=== PATIENT | female | born 1980 | race Two or more races ===

== ENCOUNTER 2021-10-15 10:11 | Outpatient (REF) | payer OTHER, SELFPAY ==
--- NOTE | ~2021-10-15 | US_ITS ---
EXAMINATION: US ABDOMEN COMPLETE CLINICAL INFORMATION: Left upper quadrant pain. COMPARISON: X-ray abdomen 05/18/2019. US retroperitoneal limited (renal only) 05/25/2018. Ultrasound abdomen complete 04/27/2015. TECHNIQUE: Real-time imaging of the abdominal viscera. FINDINGS: PANCREAS: The pancreas is homogeneous in echotexture and normal size. The pancreatic duct is minimally prominent measuring 0.23 cm. ABDOMINAL AORTA: The proximal, mid, and distal segments are normal in caliber. INFERIOR VENA CAVA: Visualized portions are normal. LIVER: Normal. The liver is normal in size. The liver contour is normal. Parenchymal echogenicity is normal. No focal hepatic lesion. There is no intrahepatic biliary duct dilatation seen. GALLBLADDER: There are multiple echogenic stones with borderline gallbladder wall thickening measuring 0.37 cm. Positive ROSSY sign is seen The gallbladder is physiologically distended. Multiple mobile gallstones are present. No evidence of gallbladder wall thickening or pericholecystic fluid. COMMON BILE DUCT: Normal in caliber measuring 0.7 cm in diameter. RIGHT KIDNEY: Normal. No hydronephrosis. No renal calculi or focal parenchymal lesions. The kidney measures 12.1 cm in maximum dimension. LEFT KIDNEY: There are 3 anechoic cysts. Lower pole cysts measure 1.1 x 0.6 x 1.2 and 0.8 x 0.4 x 0.4 cm. Upper pole cyst measures 0.5 x 0.4 x 0.3 cm. No hydronephrosis or focal parenchymal lesions. The kidney measures 11.0 cm in maximum dimension. SPLEEN: Normal. The spleen measures 10.1 cm in maximum dimension. FREE FLUID: None. US/US abdomen complete IMPRESSION: Cholelithiasis with wall thickness measuring 0.37 cm. At least 3 left renal cysts. No echogenic stones or hydronephrosis.
== END 2021-10-15 10:12 | disposition home or self-care (01) ==
LOC: HO.HMGCX 10:11
PROVIDERS: Visit Provider Nurse Practitioner Family
DX: R10.12 Left upper quadrant pain (principal)
CPT/HCPCS: 76700

== ENCOUNTER 2021-10-16 14:26 | Emergency (ER) | payer OTHER, SELFPAY ==
--- NOTE | ~2021-10-16 | CT_ITS ---
EXAMINATION: CT ABDOMEN AND PELVIS WITHOUT CONTRAST CLINICAL INFORMATION: Left lower quadrant and left flank pain with dark urine COMPARISON: Ultrasound abdomen yesterday TECHNIQUE: Multidetector volumetric imaging was performed from the superior aspect of the liver through the pubic symphysis. Sagittal and coronal reformatted images were obtained on the technologist's workstation. This CT examination was performed using dose optimization techniques as appropriate, variously including the following: *Automated exposure control *Adjustment of mA and/or kV according to patient size (this includes techniques or standardized protocols for targeted exams where dose is matched to indication/reason for exam; i.e. extremities or head) *Use of iterative reconstruction technique DLP: 862 mGy-cm FINDINGS: LUNG BASES: The visualized lung bases are unremarkable. Right middle lobe and lingular medial atelectasis is present. LIVER, GALLBLADDER, AND BILIARY TREE: The liver is normal in size, shape, and attenuation. No focal hepatic lesion or biliary ductal dilatation is present. There is a nondependent calcification seen near the gallbladder fundus consistent with cholelithiasis. More extensive disease could be seen on yesterday's ultrasound. The gallbladder is unremarkable with no evidence of radiopaque gallstones, gallbladder wall thickening, or obvious pericholecystic inflammatory changes. PANCREAS: Unremarkable. SPLEEN: Unremarkable. ADRENAL GLANDS: Unremarkable. KIDNEYS AND URETERS: LEFT: 3 stones are present in the left kidney. 2 5 mm-sized stones are noted in the upper pole with a larger 13 x 7 x 10 mm stone noted in the lower pole. The lower pole stone measures 1283 Hounsfield units and is 13.7 cm from the posterior axillary line. A few other punctate densities are seen. There is right upper pole cortical scarring present. No definite left-sided renal masses are seen on this noncontrast study. RIGHT: There is a 4 mm x 4 mm calculus on the right at the ureteropelvic junction producing some minimal caliectasis. No other calculi are seen. No renal masses are identified. BLADDER: Unremarkable. GASTROINTESTINAL TRACT: The small and large bowel are unremarkable. The appendix is unremarkable. ABDOMINAL WALL: No significant hernia is appreciated. LYMPH NODES: Normal. VASCULAR: Unremarkable. PELVIC VISCERA: Unremarkable. OSSEOUS STRUCTURES: Unremarkable. CT/CT abdomen pelvis wo con IMPRESSION: 1. Bilateral nephrolithiasis. Stone burden is higher on the left with the largest 1.3 cm stone noted at the lower pole. There is a 4 mm stone on the right at the ureteropelvic junction causing some minimal hydronephrosis. 2. Again noted is cholelithiasis. Fleischner guidelines were followed.
[2021-10-16 15:49] VITALS: BP 145/93; PULSE 100; RESP 14; TEMP 36.4; O2SAT 100; BMI 34.8
[2021-10-16 16:25] LABS: Appearance Urine CLOUDY; Color Urine DK YELLOW; Glucose Urine UA NEG (NEG); Leukocyte Esterase Urine NEG (NEG); MANUAL DIFF FLAG NO; Nitrite Urine NEG (NEG); Specific Gravity - Urine >= 1.030 (1.005-1.025); UACC Culture Trigger NO; Urine Blood 3+ (NEG); Urine Ketones 5 MG/DL (NEG); Urine Protein 1+ MG/DL (NEG-TRACE)
[2021-10-16 16:26] LABS: Basophils Absolute Auto 0.1 X10*3/uL (0.0-0.2); Basophils Percent Auto 0.6 % (0-2); Eosinophils Absolute Auto 0.2 X10*3/uL (0.0-0.4); Eosinophils Percent Auto 2.6 % (0-4); Hematocrit 42.9 % (37.0-47.0); Hemoglobin 14.2 g/dl (12.0-16.0); Imm Gran Abs Auto 0.02 X10*3/uL (0.00-0.03); Imm Gran Pct Auto 0.3 % (0.0-0.4); Lymphocytes Absolute Auto 2.5 X10*3/uL (1.2-4.9); Lymphocytes Percent Auto 32.3 % (20-40); Mean Corpuscular HGB Conc 33.1 g/dl (31.0-35.0); Mean Corpuscular Hemoglobin 30.2 pg (27.0-33.0); Mean Corpuscular Volume 91.3 fL (80.0-98.0); Mean Platelet Volume 9.1 fL (9.4-12.3); Monocytes Absolute Auto 0.5 X10*3/uL (0.1-1.2); Monocytes Percent Auto 6.9 % (2-11); Neutrophils Absolute Auto 4.5 x10*3/uL (2.0-8.3); Neutrophils Percent Auto 57.3 % (45-73); Platelet Count 249 X10*3/uL (160-400); Red Cell Distribution Width 14.4 % (11.0-16.0); White Blood Count 7.8 X10*3/uL (4.8-10.8)
[2021-10-16 16:42] LABS: Anion Gap 14 (12-20); Blood Urea Nitrogen 12 mg/dL (9-16); Calcium 9.1 mg/dL (8.4-10.2); Carbon Dioxide 27 mmol/L (22-29); Chloride 102 mmol/L (96-108); Creatinine Clr Calc Pharmacy 116.3; Estimated Glomerular Filt Rate > 60; Glucose Random 96 mg/dL (60-115); Sodium 139 mmol/L (135-145)
[2021-10-16 16:49] LABS: Calcium Oxalate Crystals Urine TRACE /LPF; Mucus Urine TRACE /LPF; RBC Urine 50-75 /HPF (0); Red Blood Cell Casts Urine 0-2 /LPF; Renal Epithelial Cells Urine TRACE /LPF; Squamous Epithelial Cell Urine TRACE /LPF; WBC Urine 0-2 /HPF (0-4)
--- NOTE | 2021-10-16 17:04 | ED_ITS ---
HPI - Female Genitourinary General Chief complaint: Urogenital-Female Stated complaint: Brown urine Time Seen by Provider: 10/16/21 17:04 Source: patient Mode of arrival: ambulatory Limitations: no limitations History of Present Illness HPI Narrative: 41-year-old female history significant for constipation presenting to the emergency department left lower quadrant and left-sided flank pain x2 days worsening patient also has complaints of dark urine also x2 days. Patient tells me that this all started after she had a large bowel movement she tells me she has a history of constipation she was very constipated and after she had a large bowel movement she started noticing dark urine, and has had intermittent severe left-sided flank pain and left-sided lower quadrant pain. Patient tells me that she has had kidney stones in the past however this does not feel like her typical kidney stone. Patient tells me her urine is very dark however she is unsure if there is blood in her urine. Denies any trauma to the area. Denies fevers, chills, chest pain, shortness of breath, nausea, vomiting, vaginal bleeding, weakness headache or dizziness. MD elicited complaint: other (L. Flank pain ) Related Data Home Medications Medication Instructions Recorded Confirmed bhmddij-yncosorhbdbjv-shbwgslj 250 1 tab PO Q4-6H PRN 09/06/21 09/06/21 mg-250 mg-65 mg tablet (Excedrin Migraine) polyethylene glycol 3350 17 17 g PO DAILY 09/06/21 09/06/21 gram/dose oral powder (Miralax) Previous Rx's Medication Instructions Recorded docusate sodium 100 mg capsule 100 mg PO BID #60 caps 09/06/21 (Colace) morphine 15 mg immediate release 15 mg PO BID PRN pain #8 tabs 10/16/21 tablet prednisone 20 mg tablet 20 mg PO DAILY 5 days #5 tabs 10/16/21 tamsulosin 0.4 mg capsule (Flomax) 0.4 mg PO DAILY #30 caps 10/16/21 Allergies Allergy/AdvReac Type Severity Reaction Status Date / Time No Known Allergies Allergy Verified 09/06/21 15:54 Review of Systems Review of Systems: Constitutional : No Weight loss, No Fever, No Chills, No Fatigue, No Malaise ENT/Mouth : No sore throat, No Rhinorrhea Eyes: No Eye Pain, No Swelling, No Redness Cardiovascular : No Chest Pain, No SOB, No Dyspnea on Exertion, No Orthopnea, No Edema, No Palpitations Respiratory : No Cough, No Sputum, No Wheezing Gastrointestinal : No Nausea, No Vomiting, No Diarrhea, No Constipation, + abdominal Pain, No Hematochezia, No Melena, + flank pain Genitourinary : No Dysuria, No Urinary Frequency, No Hematuria, + dark urine Musculoskeletal : No joint pain, No Myalgias, No Joint Swelling Skin : No Skin Lesions, No rash Neuro : No Weakness, No Numbness, No Dizziness, No Headache Psych : No Anxiety/Panic, No Depression All other systems reviewed and are negative Yes all other systems are reviewed and are negative [facility] Past Medical History Attestation statement: The following information was validated with the patient. Source: old records reviewed and nursing notes reviewed Medical History Gallstone Surgical History History of removal of calculus of renal pelvis through percutaneous nephrostomy Family History Family History Mother Mental health disorder Depressed Social History Social History Housing: Apartment Alcohol intake: never Patient Tobacco Use Status: Current everyday Tobacco user Tobacco use type: Cigarette Cigarettes Per Day: 6 e-Cigarette/Vaping Use: Never Used Second Hand Smoke Exposure: Yes Advance Directives: No Advance Directives Information Provided: Yes service: No Current occupational status: unemployed Cognitive needs: No Hearing needs: No Vision needs: No Physical Exam Vital Signs: Vital Signs: Last Vital Signs Temp 98.6 F 10/16/21 17:13 Pulse 76 10/16/21 17:13 Resp 14 10/16/21 19:50 BP 137/83 10/16/21 17:13 Pulse Ox 96 10/16/21 17:13 O2 Del Method 10/16/21 17:13 BMI result Body Mass Index 34.8 vss Appearance: Alert.? Oriented X3.? No acute distress.? Head: Normocephalic, atraumatic, no step-offs or deformities Eyes: Pupils equal, round and reactive to light.? ENT: Pharynx normal.? Neck: Normal inspection.? Neck supple.? CVS: Normal heart rate and rhythm.? Pulses normal.? Respiratory: No respiratory distress.? Breath sounds normal.? Abdomen: Soft and + LLQ tenderness .? Skin: Skin warm and dry.? Normal skin color.? Normal skin turgor.? Extremities: No lower extremity edema.? No calf ttp. 5/5 strength to bilateral upper and lower extremities Back: No midline tenderness, no C-spine tenderness, full range of motion, no CVA tenderness bilaterally Neuro: Oriented X 3.? No motor deficit.? No sensory deficit. CN 2-12 intact Course Reevaluation(s) Reevaluation #1: CBC within normal limits. Chemistry with no acute electrolyte abnormalities requiring intervention. Urine with blood, proteins, and RBCs. CT of the abdo men and pelvis with bilateral nephrolithiasis stone burden higher on the left to the largest 1.3 cm stone at the lower pole, there is a with 4 mm stone on the right at that you VJ causing some minimal hydronephrosis. Cholelithiasis is also noted. Patient will be given Flomax, prednisone, morphine and fluids at this time. Time: 19:16 Reevaluation #2: Patient reporting symptomatic relief after medication, she will be discharged home with same medication, advised her to drink plenty of fluids and to follow- up with urology. Educated on worrisome signs and symptoms and when to return Time: 20:29 MDM - Female Genitourinary MDM Narrative Medical decision making narrative: 1710 41 yo f present w/ LLQ and L flank pain X 2 days also reports dark urine. HX of stones however, this feels different Physical examination significant for left lower quadrant pain with palpation Will rule out cystitis, UTI, obstructing uropathy. Plan- labs, urine, cta abd and pelvis Medical Records Attestation: I reviewed the patient's medical records. Lab Data Attestation: I reviewed the patient's lab results. Result diagrams: 10/16/21 16:06 10/16/21 16:06 Labs: Lab Results 10/16/21 10/16/21 10/16/21 Range/Units 16:06 16:06 16:06 WBC 7.8 (4.8-10.8) X10*3/uL RBC 4.70 (4.20-5.50) X10*6/uL Hgb 14.2 (12.0-16.0) g/dl Hct 42.9 (37.0-47.0) % MCV 91.3 (80.0-98.0) fL MCH 30.2 (27.0-33.0) pg MCHC 33.1 (31.0-35.0) g/dl RDW 14.4 (11.0-16.0) % Plt Count 249 (160-400) X10*3/uL MPV 9.1 L (9.4-12.3) fL Immature Gran % (Auto) 0.3 (0.0-0.4) % Neut % (Auto) 57.3 (45-73) % Lymph % (Auto) 32.3 (20-40) % Pickett % (Auto) 6.9 (2-11) % Eos % (Auto) 2.6 (0-4) % Baso % (Auto) 0.6 (0-2) % Lymph # (Auto) 2.5 (1.2-4.9) X10*3/uL Pickett # (Auto) 0.5 (0.1-1.2) X10*3/uL Eos # (Auto) 0.2 (0.0-0.4) X10*3/uL Baso # (Auto) 0.1 (0.0-0.2) X10*3/uL Abs Immat Gran (auto) 0.02 (0.00-0.03) X10*3/uL Absolute Neuts (auto) 4.5 (2.0-8.3) x10*3/uL Absolute Nucleated RBC 0.000 (0.0-0.012) X10*3/uL Nucleated RBC % (auto) 0.0 (0.0-0.2) /100WBC Sodium 139 (135-145) mmol/L Potassium 4.0 (3.3-5.1) mmol/L Chloride 102 (96-108) mmol/L Carbon Dioxide 27 (22-29) mmol/L Anion Gap 14 (12-20) BUN 12 (9-16) mg/dL Creatinine 0.70 (0.5-1.4) mg/dL Estim Creat Clear Calc 116.3 Estimated GFR > 60 Random Glucose 96 (60-115) mg/dL Calcium 9.1 (8.4-10.2) mg/dL Urine Color DK YELLOW Urine Appearance CLOUDY Urine pH 6.0 (5.0-8.0) Ur Specific [place] >= 1.030 H (1.005-1.025) Urine Protein 1+ H (NEG-TRACE) MG/DL Urine Glucose (UA) NEG (NEG) MG/DL Urine Ketones 5 (NEG) MG/DL Urine Blood 3+ H (NEG) Urine Nitrite NEG (NEG) Ur Leukocyte Esterase NEG (NEG) Urine RBC 50-75 H (0) /HPF Urine WBC 0-2 (0-4) /HPF Ur Squamous Epith Cells TRACE /LPF Ur Renal Epithelial Cell TRACE /LPF Calcium Oxalate Crystal TRACE /LPF Urine Bacteria NONE /LPF RBC Casts 0-2 /LPF Urine Mucus TRACE /LPF Urine Yeast 3+ /HPF Critical Care Time Critical Care Time Critical Care Time: No Discharge Plan Discharge Clinical Impression: Kidney stone Patient Disposition: Home, Self-Care Instructions: Kidney Stones (ED) Additional Instructions: Take your medications as prescribed. If you were prescribed antibiotics today, it is important that you take your medication to their entirety, do not skip any doses, do not finish them early. Follow-up with your primary care provider this week. Follow up with urology Return to the emergency department with new or worsening symptoms. Such as fevers, chills, chest pain, shortness of breath, nausea, vomiting, dizziness, headache, vision changes, lethargy In case of emergency call 911 CT/CT abdomen pelvis wo con IMPRESSION: 1.? Bilateral nephrolithiasis. Stone burden is higher on the left with the largest 1.3 cm stone noted at the lower pole. There is a 4 mm stone on the right at the ureteropelvic junction causing some minimal hydronephrosis. 2.? Again noted is cholelithiasis. ? Fleischner guidelines were followed. Prescriptions: New prednisone 20 mg tablet 20 mg PO DAILY 5 Days Qty: 5 0RF morphine 15 mg tablet 15 mg PO BID PRN (Reason: pain) Qty: 8 0RF Rx Instructions: Partial Fill upon patient request. tamsulosin [Flomax] 0.4 mg capsule 0.4 mg PO DAILY Qty: 30 0RF No Action Excedrin Migraine 250-250-65 mg tablet 1 tab PO Q4-6H PRN polyethylene glycol 3350 [Miralax] 17 gram/dose powder 17 g PO DAILY docusate sodium [Colace] 100 mg capsule 100 mg PO BID Qty: 60 0RF Referrals: Nathaniel Gu MD [Primary Care Provider] - 2 days Anibal Allan MD [Physician] - 2 days Stand Alone Forms: Work/School Release
[2021-10-16 17:13] VITALS: BP 137/83; PULSE 76; RESP 18; TEMP 37; O2SAT 96
[2021-10-16 19:50] VITALS: RESP 14
[2021-10-16] MEDS: 0.9 % Sodium Chloride 1,000 ML 999 ML IV (19:50)
[2021-10-16] MEDS: Morphine Sulfate 4 MG/ML CARTRIDGE IVPUSH (19:50)
[2021-10-16] MEDS: predniSONE 20 MG TABLET PO (19:50)
[2021-10-16] MEDS: Tamsulosin HCL 0.4 MG CAPSULE PO (19:50)
[2021-10-16] MEDS: ondansetron HCL 4 MG/2 ML VIAL IVPUSH (19:50)
== END 2021-10-16 21:12 | disposition home or self-care (01) ==
PROVIDERS: Emergency Provider Emergency Medicine; PCP Internal Medicine
DX: N13.2 Hydronephrosis with renal and ureteral calculous obstruction (principal); R10.32 Left lower quadrant pain
CPT/HCPCS: 36415; 74176; 80048; 81001; 85025; 96374; 96375; 99284; J2270; J2405

== ENCOUNTER 2021-11-15 09:56 | Outpatient (REF) | payer OTHER, SELFPAY ==
--- NOTE | 2021-11-15 09:58 | EMG_ITS ---
Right tibial and peroneal motor studies were performed. Right superficial peroneal and sural sensory studies were performed. Tibial H-reflex was obtained, and needle examination was performed. IMPRESSION: There is no evidence of peroneal neuropathy or generalized neuropathy. There is some evidence suggesting right lower lumbar radiculopathy. MD AKASH Lopez/YANA / [id number]
== END 2021-11-15 09:57 | disposition home or self-care (01) ==
LOC: HO.NEURO 09:56
PROVIDERS: Visit Provider Nurse Practitioner Family
DX: R20.0 Anesthesia of skin (principal)
CPT/HCPCS: 95886; 95909

== ENCOUNTER → 2021-11-21 10:12 | Outpatient (BNVA) | payer OTHER, SELFPAY | PROVIDERS: PCP Internal Medicine; Visit Provider Urology | DX: N20.0 Calculus of kidney (principal) | CPT/HCPCS: 99212 ==

== ENCOUNTER 2021-12-31 09:03 | Outpatient (REF) | payer OTHER, SELFPAY ==
[2021-12-31 09:15] LABS: MANUAL DIFF FLAG NO
[2021-12-31 10:50] LABS: Basophils Absolute Auto 0.1 X10*3/uL (0.0-0.2); Basophils Percent Auto 0.5 % (0-2); Eosinophils Absolute Auto 0.2 X10*3/uL (0.0-0.4); Eosinophils Percent Auto 2.6 % (0-4); Hematocrit 43.2 % (37.0-47.0); Hemoglobin 14.3 g/dl (12.0-16.0); Imm Gran Abs Auto 0.03 X10*3/uL (0.00-0.03); Imm Gran Pct Auto 0.3 % (0.0-0.4); Lymphocytes Absolute Auto 3.2 X10*3/uL (1.2-4.9); Mean Corpuscular HGB Conc 33.1 g/dl (31.0-35.0); Mean Corpuscular Hemoglobin 29.9 pg (27.0-33.0); Mean Corpuscular Volume 90.2 fL (80.0-98.0); Monocytes Absolute Auto 0.7 X10*3/uL (0.1-1.2); Monocytes Percent Auto 7.5 % (2-11); Neutrophils Percent Auto 54.1 % (45-73); Platelet Count 313 X10*3/uL (160-400); Red Blood Count 4.79 X10*6/uL (4.20-5.50); Red Cell Distribution Width 14.6 % (11.0-16.0); White Blood Count 9.2 X10*3/uL (4.8-10.8)
[2021-12-31 11:08] LABS: Alanine Aminotransferase 18 U/L (0-31); Albumin Level 4.5 g/dL (3.5-5.0); Alkaline Phosphatase 88 U/L (39-117); Anion Gap 15 (12-20); Aspartate Amino Transferase 21 U/L (5-31); Bilirubin Total 0.5 mg/dL (0.0-1.0); Blood Urea Nitrogen 14 mg/dL (9-16); Calcium 9.2 mg/dL (8.4-10.2); Carbon Dioxide 25 mmol/L (22-29); Chloride 105 mmol/L (96-108); Cholesterol 180 mg/dL; Estimated Glomerular Filt Rate > 60; Glucose Fasting 113 mg/dL (60-99); HDL Cholesterol 51 mg/dL; LDL Cholesterol Calculated 116 mg/dl; Lipase 36 U/L (8-78); Potassium 4.7 mmol/L (3.3-5.1); Sodium 140 mmol/L (135-145); Total Protein 7.6 g/dL (6.5-8.0); Triglycerides 65 mg/dL
[2021-12-31 11:20] LABS: TSH reflex Free T4 0.73 uIU/mL (0.32-4.0); Vitamin D 25-OH Total 8.8 ng/mL (>30)
[2021-12-31 12:13] LABS: Folate 11.9 ng/mL (> or = 4.0); Vitamin B12 497 pg/mL (200-900)
== END 2021-12-31 09:04 | disposition home or self-care (01) ==
LOC: HO.LAB 09:03
PROVIDERS: PCP Internal Medicine; Visit Provider Nurse Practitioner Family
DX: Z13.220 Encounter for screening for lipoid disorders (principal); Z13.29 Encounter for screening for other suspected endocrine disorder; R10.12 Left upper quadrant pain
CPT/HCPCS: 36415; 80053; 80061; 82306; 82607; 82746; 83690; 84443; 85025

== ENCOUNTER 2022-01-09 06:11 | Day surgery (SDC) | payer OTHER, SELFPAY ==
[2022-01-04 15:38] VITALS: BMI 37.6
--- NOTE | 2022-01-08 10:48 | P.CONAN_ITS ---
Documented by User: Roseann Orosco NP 01/08/22 10:50 HPI - Anesthesia Eval Consult details Narrative: 41yo F for Left ESWL PMFSH Active Problems Active Problems: All Active Problems (Updated 01/06/22 @ 21:27 by Nathaniel Gu MD) Low back pain (Acute) Obesity (BMI 30-39.9) (Acute) Smoker (Acute) Annual physical exam (Acute) Migraine (Acute) Low vitamin D level (Acute) Impaired fasting glucose (Acute) Right lumbar radiculopathy (Acute) Nephrolithiasis (Acute) Numbness of toes (Acute) Screening for hypothyroidism (Acute) Screening for hyperlipidemia (Acute) LUQ pain (Acute) Constipation (Acute) Past Medical History Medical History Gallstone Migraine Obesity (BMI 30-39.9) Smoker Family History Family History Mother Mental health disorder Depressed Surgical History Surgical History (Updated 01/06/22 @ 21:07 by Nathaniel Gu MD) History of removal of calculus of renal pelvis through percutaneous nephrostomy Social History Social History Housing: Apartment Alcohol intake: never Patient Tobacco Use Status: Current everyday Tobacco user Tobacco use type: Cigarette Cigarettes Per Day: 6 e-Cigarette/Vaping Use: Never Used Second Hand Smoke Exposure: Yes Are you DNR?: No Advance Directives: No Advance Directives Information Provided: Yes Nutrition Risks: No Nutritional Risk Patient : No FDLMP: now service: No Current occupational status: unemployed Cognitive needs: No Hearing needs: No Vision needs: No Meds Allergies Allergy/AdvReac Type Severity Reaction Status Date / Time No Known Allergies Allergy Verified 12/31/21 15:37 Home Medications Medication Instructions Recorded Confirmed Last Taken Type xibuqmd-vixeqmxsbpbeh-naeetuio 250 1 tab PO Q4-6H PRN Pain 09/06/21 01/09/22 01/01/22 History mg-250 mg-65 mg tablet (Excedrin Migraine) Exam Exam Date and Time: January 08, 2022 1048 Height,Weight and Vital Signs: Height 5 ft 2 in Weight 93.44 kg Pertinent Lab Results Pertinent Lab Results: Laboratory Tests 12/31/21 12/31/21 09:10 09:10 WBC 9.2 Hgb 14.3 Hct 43.2 Plt Count 313 D Sodium 140 Potassium 4.7 Chloride 105 Carbon Dioxide 25 BUN 14 Creatinine 0.74 Assessment and Plan Assessment Anesthesia Assessment: Chart Reviewed Documented by User: Yakov Jones MD 01/09/22 08:38 [facility] Past Medical History Medical History Gallstone Migraine Obesity (BMI 30-39.9) Smoker Family History Family History Mother Mental health disorder Depressed Family history of problems with anesthesia: No Surgical History Surgical History (Updated 01/06/22 @ 21:07 by Nathaniel Gu MD) History of removal of calculus of renal pelvis through percutaneous nephrostomy History of Problems with Anesthesia: No Social History Social History Housing: Apartment Alcohol intake: never Patient Tobacco Use Status: Current everyday Tobacco user Tobacco use type: Cigarette Cigarettes Per Day: 6 e-Cigarette/Vaping Use: Never Used Second Hand Smoke Exposure: Yes Are you DNR?: No Advance Directives: No Advance Directives Information Provided: Yes Nutrition Risks: No Nutritional Risk Patient : No FDLMP: now service: No Current occupational status: unemployed Cognitive needs: No Hearing needs: No Vision needs: No Meds Allergies Allergy/AdvReac Type Severity Reaction Status Date / Time No Known Allergies Allergy Verified 12/31/21 15:37 Home Medications Medication Instructions Recorded Confirmed Last Taken Type ypuwcuk-uomkqmelwmost-mrnahvdh 250 1 tab PO Q4-6H PRN Pain 09/06/21 01/09/22 01/01/22 History mg-250 mg-65 mg tablet (Excedrin Migraine) Exam Airway Mallampati Class: II TM Dist: >3cm Neck ROM: Full Loose/Missing/Broken Teeth: No Heart: rrr+[id number] Lungs: cta b/l Assessment and Plan Assessment Anesthesia Assessment: Anesthesia Plan Discussed Final Anesthetic Review Family History of Problems with Anesthesia: No History of Problems with Anesthesia: No NPO: Yes ASA Class: II Final Preanesthetic Review: No Changes in Pt Med Stat, Meds/Allgs Chart Reviewed, Consent Obtained/Reviewed and Anes Risks/Benef Reviewed Patient Risk: Intermediate Procedure Risk: Intermediate Assessment/Block/Sedation in SS: Assess/Block/Sedation-SS Anesthetic Plan Anesthetic Plan: MAC: and Agree w/ Assess. and Plan Disposition: Standard PACU
--- NOTE | ~2022-01-09 | XR_ITS ---
EXAMINATION: XR ABDOMEN KUB CLINICAL INDICATION: Left renal calculus. COMPARISON: CT abdomen and pelvis noncontrast 10/16/2021 TECHNIQUE: AP x2 views of the abdomen. FINDINGS: There is an oval calculus overlying lower pole left renal fossa measuring 1.3 x 1.1 cm. There are no visible right renal or ureteral calculi. There is a bladder wall calcification versus phlebolith lower right pelvis again noted similar to the recent CT. Lung bases are clear. Bowel gas unremarkable. No obstruction or abnormal collections of gas. No acute bony abnormality. XR/XR KUB IMPRESSION: 1. 1.3 x 1.1 cm calculus lower pole left kidney. 2. No visible right renal or ureteral calculi. 3. Bladder wall calcification versus calcified phleboliths lower right pelvis similar to recent CT.
[2022-01-09 07:03] VITALS: BP 129/79; PULSE 100; RESP 18; TEMP 36.1; O2SAT 98
[2022-01-09 07:06] LABS: UPreg QC Valid YES; Urine Pregnancy NEGATIVE (NEGATIVE)
[2022-01-09] MEDS: Lactated Ringers 1,000 ML 100 ML IVCONT (07:16)
--- NOTE | 2022-01-09 08:48 | MHC.SHP ---
Pre-Procedural Eval Section A Date of Service: 01/09/22 The patient is an INPATIENT: No Changes since office visit: No Cold of Flu in the past 2 weeks, No New Medical Problems, No Changes in Medication and No Patient answered all questions The History & Physical has been completed within 30 days and I have reviewed it.: No Section B Chief Complaint: Calculus of kidney Details of Present Illness: left renal stones Relevant Family History (Specify if Yes): No Relevant Social History: None Present Medications: see Short Stay Collaborative assessment Medical History: No relevant PMH History of Previous Operations: No relevant previous surgery Allergies: Allergies Allergy/AdvReac Type Severity Reaction Status Date / Time No Known Allergies Allergy Verified 12/31/21 15:37 Review of Systems Sugical H&P ROS: Negative: Constitution, Cardiovascular, Respiratory, Neurological, Psychiatric, Hem-Onc, Allergic/Immunologic, Gastrointestinal, Genitourinary, Musculoskeletal, Integumentary, Endocrine and Eyes/Ears/Nose/Throat Exam Surgical H&P Exam: Normal: HEENT, Normal: Heart, Normal: Lungs, Normal: Extremities, Normal: Abdomen, Normal: Skin and Normal: Neurological Plan Diagnosis/Plan: Unchanged (left renal stone ESW) I have reviewed the history and physical and performed a pertinent physical examination on my patient. No changes have occurred unless specified.
--- NOTE | 2022-01-09 08:50 | W.PM.OPN ---
Operative Note Operative Note Date of Service: 01/09/22 Narrative: PreOperative Diagnosis: left Renal stones Post Operative Diagnosis: left Renal stones Procedure: left ESWL Surgeon: Dr Anibal Allan Anesthesia: mac/sedation Indications for procedure: The patient understands ESWL may be a staged procedure and subsequent intervention may be required based on imaging after ESWL. Quoted stone clearance rates for a solitary procedure are in the 70-80% range based primarily on stone location. They also understand there is a risk of bleeding to the kidney, infection, damage to adjacent organs, and stone migration following the procedure. - Imaging CT left 13mm lower pole stone Procedure: After informed consent was verified the patient was brought to the operating room and placed in a supine position. Anesthesia was performed per protocol. Safety pause time-out was performed. Imaging was displayed in the room and laterality confirmed. ESWL was performed. The 1st 500 shocks were performed at 60 hertz. These were performed with increasing power. Once maximum power was reached the rate was increased to 180 hertz. A total of 2500 shocks were given. Targeted imaging with ultrasound/fluoroscopy showed stone smudging suggestive of disintegration. The patient tolerated the procedure well and was transferred to the recovery area upon completion. Post procedure imaging will be organized. There was no evidence for flank discoloration.
[2022-01-09 09:25] VITALS: BP 111/67; PULSE 81; RESP 12; TEMP 36.3; O2SAT 96
[2022-01-09 09:40] VITALS: BP 107/71; PULSE 65; RESP 16; TEMP 36.1; O2SAT 97
[2022-01-09 09:55] VITALS: BP 116/77; PULSE 73; RESP 16; TEMP 36.1; O2SAT 97
[2022-01-09] MEDS: Acetaminophen 325 MG TABLET 650 MG PO (10:04)
[2022-01-09] MEDS: Phenazopyridine HCL 100 MG TABLET PO (10:05)
== END 2022-01-09 10:46 ==
LOC: HO.SSS 06:12
PROVIDERS: Nurse Practitioner; PCP Internal Medicine; Visit Provider Urology
PROC: (CPT 50590; principal; 2022-01-09 08:20)
DX: N20.0 Calculus of kidney (principal); Z87.442 Personal history of urinary calculi; G43.909 Migraine, unspecified, not intractable, without status migrainosus; Z79.82 Long term (current) use of aspirin; Z79.899 Other long term (current) drug therapy; F17.210 Nicotine dependence, cigarettes, uncomplicated
CPT/HCPCS: 50590; 74018; 81025; J1940; J2250; J2405; J3010

== ENCOUNTER 2022-01-22 09:56 | Outpatient (REF) | payer OTHER, SELFPAY ==
--- NOTE | ~2022-01-22 | US_ITS ---
EXAMINATION: US RETROPERITONEAL LIMITED (RENAL ONLY) CLINICAL INFORMATION: Calculus of kidney. COMPARISON: X-ray abdomen KUB 01/09/2022. CT abdomen and pelvis without contrast 10/16/2021. Ultrasound abdomen complete 10/15/2021. Ultrasound retroperitoneal limited (renal only) 05/25/2018. TECHNIQUE: Real-time imaging of the kidneys. FINDINGS: RIGHT KIDNEY: 11.8 x 6.3 x 6.8 cm (SAG x AP x TRV). The kidney is normal in size, contour, and echogenicity. Renal cortical thickness is normal. No calculi or focal parenchymal lesions. No hydronephrosis. LEFT KIDNEY: 12.0 x 5.4 x 5.1 cm (SAG x AP x TRV). The kidney is normal in size, contour, and echogenicity. Renal cortical thickness is normal. No focal parenchymal lesions or hydronephrosis. There is nonobstructive lower pole 1.5 x 0.6 x 1.1 cm stone and there is 1.2 x 0.8 x 1.1 cm stone in the lower pole US/US renal BI IMPRESSION: Nonobstructive renal calculi on the left.
--- NOTE | ~2022-01-22 | XR_ITS ---
EXAMINATION: XR LUMBOSACRAL SPINE CLINICAL INFORMATION: Low back pain COMPARISON: [facility] 01/09/2022, CT abdomen and pelvis noncontrast 10/16/2021, 05/17/2025. TECHNIQUE: Three views of the lumbosacral spine. FINDINGS: Normal lumbar segmentation with 5 nonrib-bearing lumbar vertebrae of normal height and normal lumbar lordosis. No lumbar vertebral compression, spondylolisthesis, or destructive process. There is mild anterior vertebral spurring L2-L5. No definite interval joint narrowing and no erosive change or endplate sclerosis. There are sclerotic changes around the mid to lower right SI joint again seen, similar to prior studies. No ankylosis or erosive change. Left SI joint unremarkable. XR/XR lumbar spine 2-3V IMPRESSION: 1. No vertebral compression, spondylolisthesis, or destructive process. 2. Mild anterior vertebral spurring L2-L5. 3. Sclerotic changes mid to lower right SI joint, possibly sacroiliitis, similar to prior exams.
[2022-01-22 11:07] LABS: MANUAL DIFF FLAG NO
[2022-01-22 11:58] LABS: Basophils Absolute Auto 0.1 X10*3/uL (0.0-0.2); Basophils Percent Auto 0.8 % (0-2); Eosinophils Absolute Auto 0.2 X10*3/uL (0.0-0.4); Eosinophils Percent Auto 3.2 % (0-4); Hematocrit 41.8 % (37.0-47.0); Hemoglobin 13.6 g/dl (12.0-16.0); Imm Gran Abs Auto 0.01 X10*3/uL (0.00-0.03); Imm Gran Pct Auto 0.2 % (0.0-0.4); Lymphocytes Absolute Auto 2.5 X10*3/uL (1.2-4.9); Lymphocytes Percent Auto 38.3 % (20-40); Mean Corpuscular HGB Conc 32.5 g/dl (31.0-35.0); Mean Corpuscular Volume 92.1 fL (80.0-98.0); Mean Platelet Volume 8.9 fL (9.4-12.3); Monocytes Absolute Auto 0.5 X10*3/uL (0.1-1.2); Monocytes Percent Auto 7.8 % (2-11); Neutrophils Absolute Auto 3.3 x10*3/uL (2.0-8.3); Neutrophils Percent Auto 49.7 % (45-73); Platelet Count 307 X10*3/uL (160-400); Red Blood Count 4.54 X10*6/uL (4.20-5.50); Red Cell Distribution Width 14.2 % (11.0-16.0); White Blood Count 6.6 X10*3/uL (4.8-10.8)
[2022-01-22 12:33] LABS: Estimated Average Glucose 111 mg/dL; Hemoglobin A1c % 5.5 %
[2022-01-22 12:53] LABS: Erythrocyte Sedimentation Rate 11 MM/HR (0-20)
[2022-01-22 12:55] LABS: Alanine Aminotransferase 23 U/L (0-31); Albumin Level 4.3 g/dL (3.5-5.0); Alkaline Phosphatase 86 U/L (39-117); Anion Gap 12 (12-20); Aspartate Amino Transferase 25 U/L (5-31); Bilirubin Total 0.7 mg/dL (0.0-1.0); Blood Urea Nitrogen 13 mg/dL (9-16); C Reactive Protein 0.47 mg/dL (< or = 0.50); Calcium 9.1 mg/dL (8.4-10.2); Carbon Dioxide 29 mmol/L (22-29); Chloride 106 mmol/L (96-108); Cholesterol 176 mg/dL; Estimated Glomerular Filt Rate > 60; Glucose Fasting 100 mg/dL (60-99); HDL Cholesterol 47 mg/dL; LDL Cholesterol Calculated 117 mg/dl; Potassium 4.9 mmol/L (3.3-5.1); Sodium 142 mmol/L (135-145); Total Protein 7.3 g/dL (6.5-8.0); Triglycerides 61 mg/dL
[2022-01-22 13:06] LABS: Appearance Urine Clear; Color Urine Yellow; Glucose Urine UA Negative (Negative); Leukocyte Esterase Urine Negative (Negative); Nitrite Urine Negative (Negative); Specific Gravity - Urine 1.025 (1.005-1.025); Urine Blood Negative (Negative); Urine Ketones Negative (Negative); Urine Protein Negative (Neg-Trace)
[2022-01-22 14:08] LABS: TSH reflex Free T4 1.44 uIU/mL (0.32-4.0)
== END 2022-01-22 09:57 | disposition home or self-care (01) ==
LOC: HO.US 09:56
PROVIDERS: Absent Provider Internal Medicine; PCP Internal Medicine; Visit Provider Urology
DX: Z00.00 Encounter for general adult medical examination without abnormal findings (principal); N20.0 Calculus of kidney; M54.16 Radiculopathy, lumbar region; M54.50 Low back pain, unspecified; G43.109 Migraine with aura, not intractable, without status migrainosus; R30.0 Dysuria; E55.9 Vitamin D deficiency, unspecified; R73.01 Impaired fasting glucose; E78.00 Pure hypercholesterolemia, unspecified
CPT/HCPCS: 36415; 72100; 76775; 80053; 80061; 81003; 82306; 83036; 84443; 85025; 85652; 86140

== ENCOUNTER 2022-02-25 08:16 | Day surgery (SDC) | payer OTHER, SELFPAY ==
--- NOTE | 2022-02-22 08:55 | P.CONAN_ITS ---
Documented by User: Roseann Orosco NP 02/22/22 09:01 HPI - Anesthesia Eval Consult details Narrative: 42yo F for Cystoscopy, Ureteroroscopy, Retro, Laser,with poss stent,with flexible scope s/p ESWL 01/09/2022 with [facility] Active Problems Active Problems: All Active Problems (Updated 02/18/22 @ 15:27 by Nathaniel Gu MD) Female hirsutism (Acute) Breast cancer screening by mammogram (Acute) Low back pain (Acute) Obesity (BMI 30-39.9) (Acute) Smoker (Acute) Annual physical exam (Acute) Migraine (Acute) Low vitamin D level (Acute) Impaired fasting glucose (Acute) Right lumbar radiculopathy (Acute) Nephrolithiasis (Acute) Numbness of toes (Acute) Screening for hypothyroidism (Acute) Screening for hyperlipidemia (Acute) LUQ pain (Acute) Constipation (Acute) Past Medical History Medical History Gallstone Migraine Obesity (BMI 30-39.9) Smoker Family History Family History Mother Mental health disorder Depressed Family history of problems with anesthesia: No Surgical History Surgical History History of removal of calculus of renal pelvis through percutaneous nephrostomy History of Problems with Anesthesia: No Social History Social History Housing: Apartment Alcohol intake: never Patient Tobacco Use Status: Current everyday Tobacco user Tobacco use type: Cigarette Cigarettes Per Day: 6 e-Cigarette/Vaping Use: Never Used Second Hand Smoke Exposure: Yes service: No Current occupational status: unemployed Cognitive needs: No Hearing needs: No Vision needs: No Meds Allergies Allergy/AdvReac Type Severity Reaction Status Date / Time No Known Allergies Allergy Verified 02/25/22 08:55 Exam Exam Date and Time: February 22, 2022 0855 Pertinent Lab Results Pertinent Lab Results: Laboratory Tests 01/22/22 01/22/22 11:06 11:06 WBC 6.6 Hgb 13.6 Hct 41.8 Plt Count 307 Sodium 142 Potassium 4.9 Chloride 106 Carbon Dioxide 29 BUN 13 Creatinine 0.71 Assessment and Plan Assessment Anesthesia Assessment: Chart Reviewed Final Anesthetic Review Family History of Problems with Anesthesia: No History of Problems with Anesthesia: No Documented by User: Sung Monroe MD 02/25/22 12:49 PMFSH Past Medical History Medical History Gallstone Migraine Obesity (BMI 30-39.9) Smoker Functional capacity: independent ambulation Family History Family History Mother Mental health disorder Depressed Surgical History Surgical History History of removal of calculus of renal pelvis through percutaneous nephrostomy Social History Social History Housing: Apartment Alcohol intake: never Patient Tobacco Use Status: Current everyday Tobacco user Tobacco use type: Cigarette Cigarettes Per Day: 6 e-Cigarette/Vaping Use: Never Used Second Hand Smoke Exposure: Yes service: No Current occupational status: unemployed Cognitive needs: No Hearing needs: No Vision needs: No Meds Allergies Allergy/AdvReac Type Severity Reaction Status Date / Time No Known Allergies Allergy Verified 02/25/22 08:55 Exam Airway Mallampati Class: III TM Dist: >3cm Neck ROM: Full Loose/Missing/Broken Teeth: Yes Heart: S1,S2 Lungs: b/l breath sounds Assessment and Plan Assessment Anesthesia Assessment: Anesthesia Plan Discussed Final Anesthetic Review NPO: Yes ASA Class: II Final Preanesthetic Review: Meds/Allgs Chart Reviewed, Consent Obtained/Reviewed and Anes Risks/Benef Reviewed Patient Risk: Intermediate Procedure Risk: Intermediate Anesthetic Plan Anesthetic Plan: GA Disposition: Standard PACU
[2022-02-25] VITALS (8 sets, daily range): BP systolic 108–141; BP diastolic 62–98; PULSE 63–123; RESP 15–18; TEMP 37.1–37.2; O2SAT 95–100; BMI 35.6
[2022-02-25 08:36] LABS: UPreg QC Valid YES; Urine Pregnancy NEGATIVE (NEGATIVE)
[2022-02-25] MEDS: Lactated Ringers 1,000 ML 100 ML IVCONT (08:43)
[2022-02-25] MEDS: levoFLOXacin 500 MG TABLET PO (08:50)
--- NOTE | 2022-02-25 08:59 | MHC.SHP ---
Pre-Procedural Eval Section A Date of Service: 02/25/22 The patient is an INPATIENT: No Changes since office visit: No Cold of Flu in the past 2 weeks, No New Medical Problems, No Changes in Medication and No Patient answered all questions The History & Physical has been completed within 30 days and I have reviewed it.: No Section B Chief Complaint: Calculus of kidney Details of Present Illness: left renal stones Relevant Family History (Specify if Yes): No Relevant Social History: None Present Medications: see Short Stay Collaborative assessment Medical History: No relevant PMH History of Previous Operations: No relevant previous surgery Allergies: Allergies Allergy/AdvReac Type Severity Reaction Status Date / Time No Known Allergies Allergy Verified 02/25/22 08:55 Review of Systems Sugical H&P ROS: Negative: Constitution, Cardiovascular, Respiratory, Neurological, Psychiatric, Hem-Onc, Allergic/Immunologic, Gastrointestinal, Genitourinary, Musculoskeletal, Integumentary, Endocrine and Eyes/Ears/Nose/Throat Exam Surgical H&P Exam: Normal: HEENT, Normal: Heart, Normal: Lungs, Normal: Extremities, Normal: Abdomen, Normal: Skin and Normal: Neurological Plan Diagnosis/Plan: Unchanged (cysto, left retograde, ureteroscopy, laser, stent) I have reviewed the history and physical and performed a pertinent physical examination on my patient. No changes have occurred unless specified. Time Spent With Patient Time: Total time managing care of this patient today ____ minutes.
--- NOTE | 2022-02-25 10:19 | P.OP_ITS ---
Operative Note Operative Note Date of Service: 02/25/22 Narrative: PreOperative Diagnosis: left renal stones Post Operative Diagnosis: left renal stones in setting of topiramate - Medullary sponge kidney Procedure: - cystoscopy, left retrograde - left dilatation of ureteric orifice under fluoroscopy - left ureteroscopy, laser lithotripsy, stone basketing - multiple stones in multiple calices - left stent placement Surgeon: Dr Anibal Allan Anesthesia: General Indications for procedure: imaging with 1 cm stone left lower pole and question of 2nd stone left upper pole Procedure: After informed consent was verified patient was brought to the operating placed in supine position. Anesthesia was administered per protocol. Patient was placed in modified dorsal lithotomy position and prepped and draped in a sterile fashion. Safety pause time-out and side of surgery confirmed. Antibiotics confirmed. 22 [place] cystoscope was inserted per urethra. Bladder was normal in its entirety. Both ureteric orifices were in normal position. The left ureteric orifice was cannulated and a retrograde examination was performed. no clear filling defects seen within left ureter or left renal area. Papillary shaddowing noted. A Sensor guidewire was placed up to the level of the renal pelvis under fl uoroscopy. The rigid cystoscope was removed and the inner cannula of ureteric access sheath was used under fluoroscopy to dilate the ureteric orifice. The 36cm suction ureteric access sheath was placed and the inner cannula with access wire removed. The digital flexible ureteral scope was placed. all calices were examined. In superior pole there were submucosal stones. Using the 260 micron laser fiber the stones were dusted. There was submucosal stones in other calices however they were not as prominent. In the lower pole was a collection of 7 mm stones. Approximately 3 in total. Popcorn Technique was used to break these into smaller fragments. Stone basketing was used and multiple passes were required in order to remove stones that could fit within the basket. Once all basketable stones were removed the stone debris was then dusted to break this into small fragments to allow clearance. The renal pelvis was then irrigated in order to remove what ever dust was able to be easily rinsed. At the completion of the stone procedure a Sensor wire was placed back into the renal pelvis. The access sheath was removed under vision. The sidewalls of the ureter or examined. Grade 1 mucosal abrasion was noted. A 6 [place] by 26 cm double-J stent was placed into the renal pelvis and bladder under a combination of fluoroscopy and direct visualization. The symphisis pubis was used as a radiographic marker to release the stent and good coil was seen within the bladder confirming position. The string was left attached to the stent as she has previously not tolerated stent placement. The bladder was emptied. The patient tolerated the procedure well and was extubated in the operating room, and transferred in stable condition to the recovery area. Pathology: Stone fragments Drains: stent is described above
[2022-02-25] MEDS: Phenazopyridine HCL 100 MG TABLET PO (10:42)
[2022-02-25] MEDS: oxyCODONE HCl Immed Release 5 MG TABLET PO (10:42)
[2022-02-28 19:54] LABS: Stone Source LEFT KIDNEY STONE
== END 2022-02-25 11:55 | disposition home or self-care (01) ==
PROVIDERS: Nurse Practitioner; PCP Internal Medicine; Visit Provider Urology
PROC: (CPT 52356; principal; 2022-02-25 09:40)
DX: N20.0 Calculus of kidney (principal); Z87.442 Personal history of urinary calculi; Q61.5 Medullary cystic kidney; E66.9 Obesity, unspecified; Z79.899 Other long term (current) drug therapy; F17.210 Nicotine dependence, cigarettes, uncomplicated
CPT/HCPCS: 52356; 52352; 81025; 82365; 88300; C1758; C1769; C2617; J0131; J1885; J2250; J2405; J3010; Q9967

== ENCOUNTER 2022-03-22 10:28 | Outpatient (REF) | payer OTHER, SELFPAY ==
--- NOTE | ~2022-03-22 | US_ITS ---
EXAMINATION: US RETROPERITONEAL LIMITED (RENAL ONLY) CLINICAL INFORMATION: Calculus of kidney. COMPARISON: Renal ultrasound 01/22/2022. X-ray KUB 01/09/2022. CT abdomen and pelvis 10/16/2021. Ultrasound abdomen complete 10/15/2021. X-ray abdomen 05/18/2019. TECHNIQUE: Real-time imaging of the kidneys. FINDINGS: RIGHT KIDNEY: 12.8 x 4.9 x 5.1 cm (SAG x AP x TRV). The kidney is normal in size, contour, and echogenicity. Renal cortical thickness is normal. No calculi or focal parenchymal lesions. There is some mild fullness in the renal pelvis but no gross hydronephrosis. LEFT KIDNEY: 11.5 x 5.0 x 5.4 cm (SAG x AP x TRV). The kidney is normal in size, contour, and echogenicity. Renal cortical thickness is normal. There are 3 echogenic foci consistent with stones measuring 5 mm in the upper pole, 8 mm in the mid kidney laterally and 9 mm in the mid kidney medially. No focal parenchymal lesions or hydronephrosis. US/US renal BI IMPRESSION: Nonobstructing left renal calculi.
== END 2022-03-22 10:29 | disposition home or self-care (01) ==
LOC: HO.US 10:28
PROVIDERS: PCP Internal Medicine; Visit Provider Urology
DX: N20.0 Calculus of kidney (principal)
CPT/HCPCS: 76775

== ENCOUNTER 2022-03-26 12:11 | Outpatient (REF) | payer OTHER, SELFPAY ==
--- NOTE | ~2022-03-26 | MM_ITS ---
EXAMINATION: MM SCREENING DIGITAL BREAST TOMOSYNTHESIS, BILATERAL CLINICAL INFORMATION: Screening. Asymptomatic. Prior [id number] mammography currently unavailable. No known family history breast cancer. The lifetime risk of breast cancer based on the Tyrer-Cuzick Model is 14%. COMPARISON: None. TECHNIQUE: Digital breast tomosynthesis is performed in both the craniocaudal and mediolateral oblique views along with computer-aided detection (CAD). Synthesized 2D images are generated from the tomosynthesis. Additional left MLO view is provided. FINDINGS: There are scattered areas of fibroglandular density (ACR BI-RADS breast composition Category b). There is a smooth dominant nodule anterior upper outer left breast approximately 0.7 cm. This may represent a cyst or fibroadenoma. The absence of prior exams, patient will be recalled to further characterize with targeted ultrasound. The remainder of the breasts show no significant mass and no architectural abnormality or abnormal calcifications. The axilla and skin contours are unremarkable. MM/MM tomosynthesis screening BI IMPRESSION: Left: -Benign-appearing smooth nodule upper outer quadrant 0.7 cm, possibly cyst or fibroadenoma. Right: -No mammographic evidence of malignancy. ASSESSMENT: BI-RADS 0: Incomplete - Need Additional Imaging Evaluation RECOMMENDATION: 1. Targeted ultrasound left breast. 2. Radiology department staff will contact the patient for additional imaging. This patient's information was entered into a reminder system with a target due date for their next mammogram.
== END 2022-03-26 12:12 | disposition home or self-care (01) ==
LOC: HO.MAMMO 12:11
PROVIDERS: PCP Internal Medicine; Visit Provider Internal Medicine
DX: Z12.31 Encounter for screening mammogram for malignant neoplasm of breast (principal)
CPT/HCPCS: 77063; 77067

== ENCOUNTER → 2022-04-05 14:12 | Outpatient (BNVA) | payer OTHER, SELFPAY | PROVIDERS: PCP Internal Medicine; Visit Provider Urology | DX: N20.0 Calculus of kidney (principal) | CPT/HCPCS: 99212 ==

== ENCOUNTER 2022-04-08 12:37 | Outpatient (REF) | payer OTHER, SELFPAY ==
--- NOTE | ~2022-04-08 | US_ITS ---
EXAMINATION: US DIAGNOSTIC ULTRASOUND BREAST, LEFT CLINICAL INFORMATION: Recall from new baseline mammography for smooth nodule upper outer left breast. COMPARISON: Mammography 03/26/2022. TECHNIQUE: Ultrasound left breast is targeted to the upper outer quadrant. Grayscale imaging and color Doppler are performed without and with harmonics. FINDINGS: There is a simple cyst 2:00 position 6 cm from nipple measuring approximately 0.6 x 0.5 cm. The cysts are circumscribed and there is increased through-transmission of sound and no associated color flow. There is no solid mass, architectural abnormality, duct ectasia, or edema in the soft tissue planes. Results are discussed with the patient at time of visit. US/US breast LT limited IMPRESSION: Simple cyst under 1 cm left breast upper outer quadrant corresponding to recent mammography. ASSESSMENT: BI-RADS 2: Benign RECOMMENDATION: Routine annual mammography screening. This patient's information was entered into a reminder system with a target due date for their next mammogram.
== END 2022-04-08 12:38 | disposition home or self-care (01) ==
LOC: HO.MAMMO 12:37
PROVIDERS: PCP Internal Medicine; Visit Provider Internal Medicine
DX: N63.21 Unspecified lump in the left breast, upper outer quadrant (principal)
CPT/HCPCS: 76642

== ENCOUNTER 2022-07-22 08:50 | Outpatient (REF) | payer OTHER, SELFPAY ==
--- NOTE | ~2022-07-22 | US_ITS ---
EXAMINATION: US RETROPERITONEAL LIMITED (RENAL ONLY) CLINICAL INFORMATION: Calculus of kidney. COMPARISON: Renal ultrasound 03/22/2022 and 01/22/2022. X-ray abdomen KUB 01/09/2022. CT abdomen and pelvis 10/16/2021. TECHNIQUE: Real-time imaging of the kidneys. FINDINGS: RIGHT KIDNEY: 11.9 x 5.5 x 5.5 cm (SAG x AP x TRV). The kidney is normal in size, contour, and echogenicity. Renal cortical thickness is normal. No calculi or focal parenchymal lesions. No hydronephrosis. LEFT KIDNEY: 10.8 x 5.0 x 6.1 cm (SAG x AP x TRV). The kidney is normal in size, contour, and echogenicity. Renal cortical thickness is normal. No calculi or focal parenchymal lesions. No hydronephrosis. US/US renal BI IMPRESSION: No renal calculi or hydronephrosis of either kidney.
== END 2022-07-22 08:51 | disposition home or self-care (01) ==
LOC: HO.US 08:50
PROVIDERS: PCP Internal Medicine; Visit Provider Urology
DX: N20.0 Calculus of kidney (principal)
CPT/HCPCS: 76775

== ENCOUNTER 2022-08-20 11:52 | Outpatient (REF) | payer OTHER, SELFPAY ==
--- NOTE | ~2022-08-20 | XR_ITS ---
EXAMINATION: XR FOOT, LEFT CLINICAL INFORMATION: M79.672 - Pain in left foot. Stepped on broken glass fragments a few months ago, increased pain plantar foot, unable to bear weight. COMPARISON: None available. TECHNIQUE: The left foot is imaged in 3 views. FINDINGS: There is no visible radiopaque soft tissue foreign body. No gas tracking in the soft tissues. There is normal bony mineralization. No bony destructive process or periostitis. No acute or healing fracture, dislocation, or arthropathy. There is a posterior calcaneal spur. Retrocalcaneal recess is preserved. XR/XR foot LT min 3V IMPRESSION: - No visible radiopaque soft tissue foreign body or gas tracking in soft tissues. - No fracture, dislocation, or arthropathy.
== END 2022-08-20 11:53 | disposition home or self-care (01) ==
LOC: HO.XRAY 11:52
PROVIDERS: PCP Internal Medicine; Visit Provider Internal Medicine
DX: S90.852A Superficial foreign body, left foot, initial encounter (principal); M79.672 Pain in left foot
CPT/HCPCS: 73630

== ENCOUNTER 2022-12-10 09:16 | Outpatient (REF) | payer OTHER, SELFPAY ==
[2022-12-10 18:25] LABS: CT PCR NOT DETECTED (Not Detect.); NG PCR NOT DETECTED (Not Detect.)
[2022-12-11 13:34] LABS: BV Int Neg Control Negative (Negative); BV Int Pos Control Positive (Positive)
== END 2022-12-10 09:17 | disposition home or self-care (01) ==
LOC: HO.LAB 09:16
PROVIDERS: Visit Provider Advanced Practice Midwife
DX: Z01.419 Encounter for gynecological examination (general) (routine) without abnormal findings (principal); N93.9 Abnormal uterine and vaginal bleeding, unspecified; N88.9 Noninflammatory disorder of cervix uteri, unspecified; L68.0 Hirsutism; N94.10 Unspecified dyspareunia; N94.6 Dysmenorrhea, unspecified; Z20.2 Contact with and (suspected) exposure to infections with a predominantly sexual mode of transmission
CPT/HCPCS: 0353U; 87480; 87510; 87660; 99386

== ENCOUNTER 2022-12-10 09:16 | Outpatient (AMB) | payer OTHER, SELFPAY ==
--- NOTE | 2022-12-10 09:18 | A.OFFVIS_ITS ---
Intake Vital Signs 12/10/22 09:19 Height 5 ft 2 in Weight 207 lb BMI 37.9 BP 140/80 H Intake Visit Reasons: New patient Annual Intake Note: The patient agreed to use of a medical claims analyst during this encounter. Scribed for MEDINA Campoverde by Aleta Brock, medical claims analyst, on 12/15/2022 at 9:35 am EST. Humanities Department Chair: Humanities Department Chair Present (Evelyn) Allergies bactrim Allergy (Severe, Uncoded 12/10/22 09:19) Unknown Is last menstrual period known: Yes Last menstrual period: 11/06/22 HPI HPI Comments History of Present Illness Details She is a new patient premenopausal woman presenting for annual exam. Patient admits she tries to eat a healthy diet including Calcium and Vitamin D. She stays active with exercise. Complains of painful and heavy menses that used to last for 26 days and would like to be tested for PCOS. Reports last menses lasted November 06-November 17. Reports menses sometimes skipping months. Reports being lightheaded and dizzy with menses. Admits facial hair growth and has gotten worse since giving to her son. Hx of migraines with aura and is seeing a specialist. Denies cervical surgery/procedures. Currently sexually active with partner and at times has pain. Does not use any form of BC. Reports trouble conceiving 11 years ago with partner. Denies vaginal itching and irritation. STD screening offered; she accepts. Denies family hx of breast, colon and ovarian cancer. Last pap smear 06/12/15. Last mammogram 03/26/22. [facility] Medical History (Updated 12/10/22 @ 09:55 by Aleta Brock) Hirsutism Lesion of cervix Dyspareunia, female Abnormal uterine bleeding (AUB) Dysmenorrhea Migraine with aura Female hirsutism Vitamin D deficiency Obesity (BMI 30-39.9) Smoker Gallstone Surgical History History of removal of calculus of renal pelvis through percutaneous nephrostomy Family History Mother Mental health disorder Depressed Social History (Updated 12/10/22 @ 09:27 by JENNIFER Mendoza) Housing: Apartment Alcohol intake: never Patient Tobacco Use Status: Current everyday Tobacco user Tobacco use type: Cigarette Cigarettes Per Day: 6 e-Cigarette/Vaping Use: Never Used Second Hand Smoke Exposure: Yes service: No Current occupational status: unemployed Sexual orientation: Straight/Heterosexual Gender identity: Female Cognitive needs: No Hearing needs: No Vision needs: No Female Reproductive History Menstrual Duration of menses: 8-10 days Date of last menstrual period: 11/06/22 control method: none Total pregnancies: 1 Full term: 1 Number of Living Children: 1 Date of last pap smear: 06/12/15 (neg pap and hpv) Date of Mammogram: 03/26/22 (Birad 0) Physical Exam Vital Signs: Last Vital Signs BP 140/80 H 12/10/22 09:19 BMI result Body Mass Index 37.9 Const General: cooperative, healthy appearing, no acute distress, well developed and alert Orientation/consciousness: patient oriented x3 HEENT Other: facial chin hair Head: Yes normal to inspection Eyes General: appearance normal, both eyes and all related structures Neck Neck: Yes normal visual inspection Thyroid: Thyroid normal Chest Chest palpation & inspection: normal inspection of the chest Breast/axilla inspection: normal inspection of the breasts (no puckering, dimpling, peau de orange, retraction, discharge, masses) Breast/axilla palpation: normal palpation of the breasts Resp Effort & Inspection: normal respiratory effort GI Inspection: Yes normal to inspection Palpation (GI): Soft to palpation (to palpation) Rectal Exam - Female: deferred Other: cervical lesion at cervical OS. General: Yes bladder normal to inspection External Female Exam: normal external appearance and normal appearance of the urethra Speculum Exam - Vagina: normal appearance of the vagina, normal palpation and normal vaginal discharge Speculum Exam - Cervix: normal appearance of the cervix and normal palpation Bimanual exam- vagina & uterus: normal palpation and normal palpation Bimanual Exam- Adnexa, other: normal adnexae and no masses Skin General skin exam: no rashes or lesions noted Neuro General: patient oriented x3 Cognition (Neuro): normal cognition Extrem General: Yes normal to inspection Psych Attitude: cooperative Thought process: Normal thought process present Assessment & Plan Assessment & Plan (1) Encounter for well woman exam: Code(s): Z01.419 - Encounter for gynecological examination (general) (routine) without abnormal findings Plan: Discussed: Current recommendations for pap smears per ASCCP guidelines. Breast awareness and periodic self breast exams. Maintaining a healthy lifestyle including a well balanced diet and routine exercise. All of her questions and concerns were addressed to the best of my ability and shared decision making. She is agreeable to plan of care. RTO in one year for AG. (2) Abnormal uterine bleeding (AUB): Code(s): N93.9 - Abnormal uterine and vaginal bleeding, unspecified Plan: Discussed work up including pelvic US, labs and EMB. The EMB purpose was explained to rule out atypia, hyperplasia and uterine cancer. Reviewed procedure and instructed to take ibuprofen with food 1 hour prior to procedure. (3) Lesion of cervix: Code(s): N88.9 - Noninflammatory disorder of cervix uteri, unspecified Plan: Pelvic US ordered. Follow up in person for results. (4) Hirsutism: Code(s): L68.0 - Hirsutism Plan: Discussed workup including labs and US to rule out PCOS. She is agreeable to plan. Labs and US ordered today. Will await results and treat accordingly. Return in 2 weeks for test results. (5) Potential exposure to STD: Code(s): Z20.2 - Contact with and (suspected) exposure to infections with a predominantly sexual mode of transmission Plan: BV testing and GC/CT panel done today. Await results and treat accordingly. (6) Dyspareunia, female: Code(s): N94.10 - Unspecified dyspareunia Plan: Encouraged to use condoms or abstinence for now. (7) Dysmenorrhea: Code(s): N94.6 - Dysmenorrhea, unspecified Orders: Orders Bacterial Vaginosis Panel Today N93.9 - Abnormal uterine and vaginal bleeding, unspecified, N94.6 - Dysmenorrhea, unspecified CT NG by PCR Today N93.9 - Abnormal uterine and vaginal bleeding, unspecified, N94.6 - Dysmenorrhea, unspecified Complete Blood Count no Diff Today L68.0 - Hirsutism, N93.9 - Abnormal uterine and vaginal bleeding, unspecified DHEA Sulfate Today L68.0 - Hirsutism, N93.9 - Abnormal uterine and vaginal bleeding, unspecified HCG Quantitative Today L68.0 - Hirsutism, N93.9 - Abnormal uterine and vaginal bleeding, unspecified Testosterone, Free/Total Today L68.0 - Hirsutism, N93.9 - Abnormal uterine and vaginal bleeding, unspecified 17 Hydroxyprogesterone Today L68.0 - Hirsutism, N93.9 - Abnormal uterine and vaginal bleeding, unspecified Pap Smear Today N93.9 - Abnormal uterine and vaginal bleeding, unspecified, N94.6 - Dysmenorrhea, unspecified, Z01.419 - Encounter for gynecological examination (general) (routine) without abnormal findings US OB pelvic and transvaginal Today N88.9 - Noninflammatory disorder of cervix uteri, unspecified, N93.9 - Abnormal uterine and vaginal bleeding, unspecified, N94.10 - Unspecified dyspareunia Thyroid Stimulating Hormone Today L68.0 - Hirsutism, N92.1 - Excessive and frequent menstruation with irregular cycle, N93.9 - Abnormal uterine and vaginal bleeding, unspecified Prolactin Today L68.0 - Hirsutism, N93.9 - Abnormal uterine and vaginal bleeding, unspecified Coding Level of Care Code New Pt Prev Care 40-64y(75662) Diagnoses Encounter for well woman exam Z01.419 Abnormal uterine bleeding (AUB) N93.9 Lesion of cervix N88.9 Hirsutism L68.0 Potential exposure to STD Z20.2 Dyspareunia, female N94.10 Dysmenorrhea N94.6
[2022-12-10 09:19] VITALS: BP 140/80; BMI 37.9
== END 2022-12-10 09:54 | disposition home or self-care (01) ==
PROVIDERS: Visit Provider Advanced Practice Midwife
DX: Z01.419 Encounter for gynecological examination (general) (routine) without abnormal findings (principal); N93.9 Abnormal uterine and vaginal bleeding, unspecified; N88.9 Noninflammatory disorder of cervix uteri, unspecified; L68.0 Hirsutism; Z20.2 Contact with and (suspected) exposure to infections with a predominantly sexual mode of transmission; N94.10 Unspecified dyspareunia; N94.6 Dysmenorrhea, unspecified
CPT/HCPCS: 99386

== ENCOUNTER 2022-12-10 09:46 | Outpatient (REF) | payer OTHER, SELFPAY ==
[2022-12-12 20:54] LABS: HPV mRNA E6/E7 rflx Not Detected (Not Detected)
== END 2022-12-10 09:47 | disposition home or self-care (01) ==
LOC: HO.LNP 09:46
PROVIDERS: Visit Provider Advanced Practice Midwife
DX: Z11.51 Encounter for screening for human papillomavirus (HPV) (principal); N93.9 Abnormal uterine and vaginal bleeding, unspecified; N94.6 Dysmenorrhea, unspecified
CPT/HCPCS: 87624; 88142

== ENCOUNTER 2022-12-26 13:24 | Outpatient (REF) | payer OTHER, SELFPAY ==
[2023-01-01 23:32] LABS: Stone Source KIDNEY
== END 2022-12-26 13:25 | disposition home or self-care (01) ==
LOC: HO.LNP 13:24
PROVIDERS: PCP Internal Medicine; Visit Provider Nurse Practitioner Family
DX: N20.0 Calculus of kidney (principal)
CPT/HCPCS: 81003; 82365; 88300; 99212

== ENCOUNTER 2022-12-26 13:24 | Outpatient (AMB) | payer OTHER, SELFPAY ==
--- NOTE | 2022-12-26 14:07 | A.OFFVIS_ITS ---
Intake Intake Visit Reasons: Kidney stone- follow up(set) Intake Note: Patient is present for follow up kidney stone Urology Medications: none Blood Thinner: None Church Official Required: No Accompanied by: Son Allergies bactrim Allergy (Severe, Uncoded 12/26/22 14:47) Unknown Medication List - Last Reconciled 12/26/22 by ADITI Lopez-ZBIGNIEW cholecalciferol (vitamin D3) 50 mcg PO DAILY riboflavin (vitamin B2) 100 mg PO DAILY 30 days sumatriptan succinate take 1 tab at onset of headache; if no relief may repeat 1 tab after at least 2 hrs; max = 4 tabs/24 hr PO topiramate 50 mg PO BEDTIME 30 days HPI HPI Comments History of Present Illness Details Sara is a very plesant 42 year old female patient of Dr.Aqu tovarwho was accompanied by her 11-year-old son at today's visit. She has a past medical history of abnormal uterine bleeding migraine with aura, vitamin-D deficiency, obesity, smoker, and hirsutism. She presents to the office today for follow-up of her nephrolithiasis. In discussion with the patient today she reports to be doing and feeling well. Patient with a previous longstanding history of nephrolithiasis in prior procedures as noted below. When asked she reports to be feeling left-sided flank pain that has been ongoing for weeks now. She reports having brought with her to the office today a renal stone that she passed just a few days ago. She has a history of mixed calcium stone with high portion of carbonate apatite. She otherwise currently denies urinary urgency, urinary frequency, incontinence, nocturia, hematuria, dysuria, foul smelling urine, changes to urinary stream, fever, and or chills. She is happy with her current voiding parameters. In office urinalysis results reviewed with the patient today. Most recent renal ultrasound from 07/30 results reviewed with the patient today. Bilateral kidneys with no calculi, lesions, and or hydronephrosis noted. No renal calculi or hydronephrosis of either kidney. When asked patient reports to be drinking plenty of water daily. She otherwise offers no other issues or concerns at this time. Nephrolithiasis Longstanding Prior procedures October 2021 - ER visit with right-sided flank pain Imaging - 10/29 4 mm right proximal ureteric ston e, 12 mm left lower pole stone - 01/29 renal ultrasound multiple left s tones Intervention - 02/28 Left USR Stone composition - 02/28 mixed calcium oxalate monohydrat e 35%, carbonate apatite 35% PFSH Medical History Hirsutism Lesion of cervix Dyspareunia, female Abnormal uterine bleeding (AUB) Dysmenorrhea Migraine with aura Female hirsutism Vitamin D deficiency Obesity (BMI 30-39.9) Smoker [facility] Surgical History History of removal of calculus of renal pelvis through percutaneous nephrostomy Family History Mother Mental health disorder Depressed Social History Housing: Apartment Alcohol intake: never Patient Tobacco Use Status: Current everyday Tobacco user Tobacco use type: Cigarette Cigarettes Per Day: 6 e-Cigarette/Vaping Use: Never Used Second Hand Smoke Exposure: Yes service: No Current occupational status: unemployed Sexual orientation: Straight/Heterosexual Gender identity: Female Cognitive needs: No Hearing needs: No Vision needs: No Review of Systems Const Reports as per HPI Eyes Reports no additional complaints ENT Reports no additional complaints Card Reports no additional complaints Resp Reports no additional complaints GI Reports no additional complaints Reports as per HPI Neuro Reports as per HPI Psych Reports no additional complaints Endo Reports as per HPI Physical Exam Const General: cooperative, healthy appearing, comfortable, no acute distress, well developed, alert and awake Orientation/consciousness: patient oriented x3 HEENT Head: Yes normal to inspection, Yes normocephalic and Yes atraumatic Ears: hearing grossly normal bilaterally Eyes General: appearance normal, both eyes and all related structures Neck Neck: Yes normal visual inspection and Yes trachea midline Chest Chest palpation & inspection: normal inspection of the chest Resp Effort & Inspection: normal respiratory effort and able to speak in complete sentences Cardio Rate: regular rate GI Inspection: Yes normal to inspection General: Yes no CVA tenderness Back/Spine/Pelvis Back: no CVA tenderness Skin General skin exam: no rashes or lesions noted Neuro General: patient oriented x3 Extrem General: Yes normal to inspection Psych Appearance: grossly normal and well kempt Mental Status: mental status grossly normal Speech and movement: Normal speech and movement present and Clear speech present Affect: normal affect Attitude: cooperative Thought process: Normal thought process present Thought content: Normal thought content present Insight: Fair insight present (Psych) Judgement: Fair judgement present (Psych) Results AMB Urinalysis, Automated UA Leukoctes 0 Wiliam/uL Last Edit by Shahab P. Tabatabai, Broker on 12/26/22 14:41 UA Nitrite Negative Last Edit by Shahab P. Tabatabai, Broker on 12/26/22 14:41 UA Urobilinogen 0.2 mg/dL Last Edit by Shahab P. Tabatabai, Broker on 12/26/22 14:41 UA Protein 0 mg/dL Last Edit by Shahab P. Tabatabai, Broker on 12/26/22 14:41 UA pH 6.0 Last Edit by Shahab P. Tabatabai, Broker on 12/26/22 14:41 UA Blood 0 Lc/uL Last Edit by Shahab P. Tabatabai, Broker on 12/26/22 14:41 UA Specific [place] 1.015 Last Edit by Shahab P. Tabatabai, Broker on 12/26/22 14:41 UA Ketone Negative Last Edit by Shahab P. Tabatabai, Broker on 12/26/22 14:41 UA Bilirubin 0 mg/dL Last Edit by Shahab P. Tabatabai, Broker on 12/26/22 14:41 UA Glucose 0 mg/dL Last Edit by Shahab P. Tabatabai, Broker on 12/26/22 14:41 Results Reviewed Results Reviewed: Laboratory Last Values Urine pH (Auto) 6.0 12/26/22 14:15 Specific [place] (Auto) 1.015 12/26/22 14:15 Urine Protein (Auto) 0 mg/dL 12/26/22 14:15 Glucose (UA)(Auto) 0 mg/dL 12/26/22 14:15 Urine Ketones (Auto) Negative 12/26/22 14:15 Urine Blood (Auto) 0 Lc/uL 12/26/22 14:15 Urine Nitrite (Auto) Negative 12/26/22 14:15 Urine Bilirubin (Auto) 0 mg/dL 12/26/22 14:15 Urine Urobilinogen (Auto) 0.2 mg/dL 12/26/22 14:15 Leukocyte Esterase (Auto) 0 Wiliam/uL 12/26/22 14:15 Assessment & Plan Assessment & Plan (1) Nephrolithiasis: Code(s): N20.0 - Calculus of kidney Plan In office urinalysis results reviewed with the patient today; as noted above. Will send stone for stone analysis Discussed, educated, encouraged on the importance of drinking plenty of fluid daily. Most recent renal ultrasound results reviewed with the patient today from 07/30 Patient reporting left-sided flank pain Will obtain renal ultrasound for further assessment evaluation. Continue adding 1 oz of lemon juice to water daily. Follow-up in 2-4 weeks with imaging to be completed prior; or sooner with any issues, concerns, and or questions. Orders: Orders Surgical Today N20.0 - Calculus of kidney AMB Urinalysis Automated Today Z13.9 - Encounter for screening, unspecified US renal BI Today N20.0 - Calculus of kidney Patient Instructions: The patient had an opportunity to ask questions regarding the treatment plan. All questions were answered. Physical exam, labs, and imaging were discussed and reviewed in detail. As well as risks, benefits, and discussion of treatment choices. No major barriers to understanding were identified. The patient expressed understanding and agreement with the above treatment plan. The patient was made aware they should contact our office by phone for worsening of their current condition, the appearance of new symptoms, or with any questions or concerns. Compliance is encouraged with any medications and follow up testing that is ordered. It is a privilege to be allowed the opportunity to participate in? your urological care.? Again, if you have any questions or concerns If you have any questions or concerns please do not hesitate to contact me. The office is [phone]. This note is constructed using voice recognition software. While every effort has been made to ensure accuracy key maker errors may have been included. Yours sincerely, CINDI Lopez Coding Level of Care Code Est Pt Level 3 (96534) Diagnoses Nephrolithiasis N20.0
== END 2022-12-26 14:45 | disposition home or self-care (01) ==
PROVIDERS: PCP Internal Medicine; Visit Provider Nurse Practitioner Family
DX: Z13.9 Encounter for screening, unspecified (principal); N20.0 Calculus of kidney
CPT/HCPCS: 99213

== ENCOUNTER 2023-01-10 10:39 | Outpatient (REF) | payer OTHER, SELFPAY ==
--- NOTE | ~2023-01-10 | US_ITS ---
EXAMINATION: US RETROPERITONEAL LIMITED (RENAL ONLY) CLINICAL INFORMATION: Calculus of kidney. COMPARISON: Ultrasound retroperitoneal limited 07/22/2022 and 03/22/2022. X-ray abdomen KUB 01/09/2022. CT abdomen and pelvis without contrast 10/16/2021. X-ray abdomen 05/18/2019. TECHNIQUE: Real-time imaging of the kidneys. FINDINGS: RIGHT KIDNEY: 12.3 x 5.2 x 6.9 cm (SAG x AP x TRV). The kidney is normal in size, contour, and echogenicity. Renal cortical thickness is normal. No calculi or focal parenchymal lesions. No hydronephrosis. LEFT KIDNEY: 11.9 x 4.7 x 5.0 cm (SAG x AP x TRV). The kidney is normal in size, contour, and echogenicity. Renal cortical thickness is normal. No focal parenchymal lesions or hydronephrosis. There is lower pole 0.9 x 0.3 x 0.4 cm calculus and caliectasis in interpolar collecting system. US/US renal BI IMPRESSION: Nephrolithiasis on the left.
--- NOTE | ~2023-01-10 | US_ITS ---
EXAMINATION: US PELVIS CLINICAL INFORMATION: Abnormal uterine and vaginal bleeding COMPARISON: None TECHNIQUE: Ultrasound of the pelvis is performed using both transabdominal and transvaginal transducers along with Doppler. Transvaginal imaging is performed due to inadequate visualization transabdominally. FINDINGS: Uterus: The uterus is retroverted and retroflexed and measures 7.9 x 4.0 x 5.8 cm. The double wall endometrial thickness is 1.3 cm On transvaginal ultrasound the uterus is smooth in contour and has normal myometrial echogenicity. No visible fibroid. Small nabothian cysts seen in the cervix. Adnexa: Both ovaries are visualized. There is normal color flow to the adnexa. There is no ovarian torsion. There is no pelvic ascites or fluid collection. Right ovary measures 3.2 x 1.7 x 2.7 cm. Volume 7.7 mL. A small oblique corpus luteal cyst is visualized measuring 1.8 x 1.3 x 1.4 cm. Left ovary measures 2.0 1.8 x 1.1 cm. Volume 2.2 mL. No focal lesion seen. There is no free fluid in the cul-de-sac. US/US pelvic and transvaginal IMPRESSION: 1. Small nabothian cysts in the cervix. 2. Small corpus luteal cyst right ovary. 3. The uterus is unremarkable. However the endometrium is mildly thickened measuring 1.3 cm. 4. There is no free fluid in the cul-de-sac.
== END 2023-01-10 10:40 | disposition home or self-care (01) ==
LOC: HO.US 10:39
PROVIDERS: Absent Provider Nurse Practitioner Family; PCP Internal Medicine; Visit Provider Advanced Practice Midwife
DX: N20.0 Calculus of kidney (principal); N93.9 Abnormal uterine and vaginal bleeding, unspecified
CPT/HCPCS: 76775; 76830; 76856

== ENCOUNTER 2023-01-24 10:21 | Outpatient (AMB) | payer OTHER, SELFPAY ==
--- NOTE | 2023-01-24 11:10 | MHC.OFFVIS ---
Intake Intake Visit Reasons: 4w/US(set) Intake Note: Patient is present for follow up kidney stone/ultrasound (imaging 01/10/23) Urology Medications: none Blood Thinner: None Railcar Mechanic Required: No Accompanied by: Self / Same As Patient Allergies bactrim Allergy (Severe, Uncoded 01/24/23 11:21) Unknown Medication List - Last Reconciled 01/24/23 by CINDI Lopez cholecalciferol (vitamin D3) 50 mcg PO DAILY riboflavin (vitamin B2) 100 mg PO DAILY 30 days sumatriptan succinate take 1 tab at onset of headache; if no relief may repeat 1 tab after at least 2 hrs; max = 4 tabs/24 hr PO topiramate 50 mg PO BEDTIME 30 days HPI HPI Comments History of Present Illness Details Sara is a very plesant 42 year old female patient of Dr. Gu. She has a past medical history of abnormal uterine bleeding migraine with aura, vitamin-D deficiency, obesity, smoker, and hirsutism. She presents to the office today for follow-up of her nephrolithiasis. Of note, patient was seen approximately one month ago at which time a renal ultrasound was ordered for further assessment and evaluation. These results were reviewed with the patient today. Right kidney with no calculi, lesions and or hydronephrosis. The left kidney with no lesions or hydronephrosis. There is 0.9 x 0.3 x 0.4 cm calculus and caliectasis in interpolar collecting system. Patient with a previous longstanding history of nephrolithiasis and prior procedures as noted below. When asked she reports to be feeling left-sided flank pain that has been intermittent for weeks now. She has a history of mixed calcium stone with high portion of carbonate apatite. She otherwise currently denies urinary urgency, urinary frequency, incontinence, nocturia, hematuria, dysuria, foul smelling urine, changes to urinary stream, fever, and or chills. She is happy with her current voiding parameters. In office urinalysis results reviewed with the patient today. Nephrolithiasis Longstanding Prior procedures October 2021 - ER visit with right-sided flank pain Imaging - 10/29 4 mm right proximal ureteric stone, 12 mm left lower pole stone - 01/29 renal ultrasound multiple left stones Intervention - 02/28 Left USR Stone composition - 02/28 mixed calcium oxalate monohydrate 35%, carbonate apatite 35% PFSH Medical History Hirsutism Lesion of cervix Dyspareunia, female Abnormal uterine bleeding (AUB) Dysmenorrhea Migraine with aura Female hirsutism Vitamin D deficiency Obesity (BMI 30-39.9) Smoker [facility] Surgical History History of removal of calculus of renal pelvis through percutaneous nephrostomy Family History Mother Mental health disorder Depressed Social History Housing: Apartment Alcohol intake: never Patient Tobacco Use Status: Current everyday Tobacco user Tobacco use type: Cigarette Cigarettes Per Day: 6 e-Cigarette/Vaping Use: Never Used Second Hand Smoke Exposure: Yes service: No Current occupational status: unemployed Sexual orientation: Straight/Heterosexual Gender identity: Female Cognitive needs: No Hearing needs: No Vision needs: No Review of Systems Const Reports as per HPI Eyes Reports no additional complaints ENT Reports no additional complaints Card Reports no additional complaints Resp Reports no additional complaints GI Reports no additional complaints Reports as per HPI Neuro Reports as per HPI Psych Reports no additional complaints Endo Reports as per HPI Physical Exam Const General: cooperative, healthy appearing, comfortable, no acute distress, well developed, alert and awake Orientation/consciousness: patient oriented x3 HEENT Head: Yes normal to inspection, Yes normocephalic and Yes atraumatic Ears: hearing grossly normal bilaterally Eyes General: appearance normal, both eyes and all related structures Neck Neck: Yes normal visual inspection and Yes trachea midline Chest Chest palpation & inspection: normal inspection of the chest Resp Effort & Inspection: normal respiratory effort and able to speak in complete sentences Cardio Rate: regular rate GI Inspection: Yes normal to inspection General: Yes no CVA tenderness Back/Spine/Pelvis Back: no CVA tenderness Skin General skin exam: no rashes or lesions noted Neuro General: patient oriented x3 Extrem General: Yes normal to inspection Psych Appearance: grossly normal and well kempt Mental Status: mental status grossly normal Speech and movement: Normal speech and movement present and Clear speech present Affect: normal affect Attitude: cooperative Thought process: Normal thought process present Thought content: Normal thought content present Insight: Fair insight present (Psych) Judgement: Fair judgement present (Psych) Results AMB Urinalysis, Automated UA Leukoctes 0 Wiliam/uL Last Edit by [employer]rc Funez on 01/24/23 11:29 UA Nitrite Negative Last Edit by [email or web address] [employer] Groupanisha on 01/24/23 11:29 UA Urobilinogen 0.2 mg/dL Last Edit by Lukkinanisha on 01/24/23 11:29 UA Protein 0 mg/dL Last Edit by Lukkinanisha on 01/24/23 11:29 UA pH 6.0 Last Edit by Lukkinanisha on 01/24/23 11:29 UA Blood 0 Lc/uL Last Edit by Lukkinanisha on 01/24/23 11:29 UA Specific [place] 1.025 Last Edit by Lukkinanisha on 01/24/23 11:29 UA Ketone Negative Last Edit by Lukkinanisha on 01/24/23 11:29 UA Bilirubin 1 mg/dL Last Edit by Lukkinanisha on 01/24/23 11:29 UA Glucose 0 mg/dL Last Edit by Lukkinanisha on 01/24/23 11:29 Results Reviewed Results Reviewed: Laboratory Last Values Urine pH (Auto) 6.0 01/24/23 11:14 Specific [place] (Auto) 1.025 01/24/23 11:14 Urine Protein (Auto) 0 mg/dL 01/24/23 11:14 Glucose (UA)(Auto) 0 mg/dL 01/24/23 11:14 Urine Ketones (Auto) Negative 01/24/23 11:14 Urine Blood (Auto) 0 Lc/uL 01/24/23 11:14 Urine Nitrite (Auto) Negative 01/24/23 11:14 Urine Bilirubin (Auto) 1 mg/dL 01/24/23 11:14 Urine Urobilinogen (Auto) 0.2 mg/dL 01/24/23 11:14 Leukocyte Esterase (Auto) 0 Wiliam/uL 01/24/23 11:14 Date of Service: 01/10/23 EXAMINATION: US RETROPERITONEAL LIMITED (RENAL ONLY) FINDINGS: RIGHT KIDNEY: 12.3 x 5.2 x 6.9 cm (SAG x AP x TRV). The kidney is normal in size, contour, and echogenicity. Renal cortical thickness is normal. No calculi or focal parenchymal lesions. No hydronephrosis. LEFT KIDNEY: 11.9 x 4.7 x 5.0 cm (SAG x AP x TRV). The kidney is normal in size, contour, and echogenicity. Renal cortical thickness is normal. No focal parenchymal lesions or hydronephrosis. There is lower pole 0.9 x 0.3 x 0.4 cm calculus and caliectasis in interpolar collecting system. IMPRESSION: Nephrolithiasis on the left. Assessment & Plan Assessment & Plan (1) Nephrolithiasis: Code(s): N20.0 - Calculus of kidney (2) Left flank pain: Code(s): R10.9 - Unspecified abdominal pain Plan In office urinalysis results reviewed with the patient today; as noted above Recent renal imaging results reviewed with the patient today; as noted above Will obtain KUB for further assessment and evaluation Start vitamin B6 as prescribed and discussed Discussed possible surgical intervention for nephrolithiasis. Discussed, educated, and encouraged to drink plenty of water daily. Follow up in 1-2 weeks with KUB to be completed prior; or sooner with any issues, concerns, and questions. Orders: Orders AMB Urinalysis Automated Today Z13.9 - Encounter for screening, unspecified XR KUB Today N20.0 - Calculus of kidney Medications: New pyridoxine (vitamin B6) 100 mg PO DAILY 90 days 90 tabs 1RF N20.0 - Calculus of kidney Patient Instructions: The patient had an opportunity to ask questions regarding the treatment plan. All questions were answered. Physical exam, labs, and imaging were discussed and reviewed in detail. As well as risks, benefits, and discussion of treatment choices. No major barriers to understanding were identified. The patient expressed understanding and agreement with the above treatment plan. The patient was made aware they should contact our office by phone for worsening of their current condition, the appearance of new symptoms, or with any questions or concerns. Compliance is encouraged with any medications and follow up testing that is ordered. It is a privilege to be allowed the opportunity to participate in? your urological care.? Again, if you have any questions or concerns If you have any questions or concerns please do not hesitate to contact me. The office is [phone]. This note is constructed using voice recognition software. While every effort has been made to ensure accuracy anode crew supervisor errors may have been included. Yours sincerely, ADITI Lopez-ZBIGNIEW Coding Level of Care Code Est Pt Level 4 (50821) Diagnoses Nephrolithiasis N20.0 Left flank pain R10.9
== END 2023-01-24 11:52 | disposition home or self-care (01) ==
PROVIDERS: PCP Internal Medicine; Visit Provider Nurse Practitioner Family
DX: N20.0 Calculus of kidney (principal); R10.9 Unspecified abdominal pain
CPT/HCPCS: 99214

== ENCOUNTER → 2023-01-24 10:21 | Outpatient (BNVA) | payer OTHER, SELFPAY | PROVIDERS: PCP Internal Medicine; Visit Provider Nurse Practitioner Family | DX: N20.0 Calculus of kidney (principal); R10.9 Unspecified abdominal pain | CPT/HCPCS: 81003; 99212 ==

== ENCOUNTER 2023-01-28 09:42 | Outpatient (REF) | payer OTHER, SELFPAY ==
--- NOTE | ~2023-01-28 | XR_ITS ---
EXAMINATION: XR ABDOMEN KUB CLINICAL INDICATION: Renal calculus. COMPARISON: None available. TECHNIQUE: AP view of the abdomen. FINDINGS: The bowel gas pattern is normal with no evidence of ileus or obstruction. At the lower pole of the left kidney, a 7 mm nonobstructing calculus is seen. No further urinary calculus is appreciated. There are small pelvic phleboliths. No acute osseous abnormality is seen. 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 XR/XR KUB IMPRESSION: A 7 mm left renal lower pole calculus is seen. No further urinary calculus is presently appreciated radiographically, with imaging, in particular of the right kidney, somewhat limited by overlapping bowel contents.
== END 2023-01-28 09:43 | disposition home or self-care (01) ==
LOC: HO.XRAY 09:42
PROVIDERS: PCP Internal Medicine; Visit Provider Nurse Practitioner Family
DX: N20.0 Calculus of kidney (principal)
CPT/HCPCS: 74018

== ENCOUNTER 2023-02-07 09:56 | Outpatient (REF) | payer OTHER, SELFPAY ==
[2023-02-07 14:03] LABS: Hematocrit 42.6 % (37.0-47.0); Hemoglobin 13.9 g/dl (12.0-16.0); Mean Corpuscular HGB Conc 32.6 g/dl (31.0-35.0); Mean Corpuscular Hemoglobin 30.6 pg (27.0-33.0); Mean Corpuscular Volume 93.8 fL (80.0-98.0); Mean Platelet Volume 8.8 fL (9.4-12.3); Platelet Count 255 X10*3/uL (160-400); Red Blood Count 4.54 X10*6/uL (4.20-5.50); Red Cell Distribution Width 13.7 % (11.0-16.0); White Blood Count 7.4 X10*3/uL (4.8-10.8)
[2023-02-07 15:11] LABS: HCG Quantitative < 2 mIU/mL; Thyroid Stimulating Hormone 0.58 uIU/mL (0.32-4.0)
[2023-02-08 12:04] LABS: DHEA Sulfate 184 mcg/dL (15-205); Prolactin 5.8 ng/mL
[2023-02-17 09:29] LABS: Testosterone, Free 2.9 pg/mL (0.1-6.4); Testosterone, Total 22 ng/dL (2-45)
== END 2023-02-07 09:57 | disposition home or self-care (01) ==
LOC: HO.LAB 09:56
PROVIDERS: Absent Provider Advanced Practice Midwife; PCP Internal Medicine; Visit Provider Nurse Practitioner Family
DX: L68.0 Hirsutism (principal); N93.9 Abnormal uterine and vaginal bleeding, unspecified; N92.1 Excessive and frequent menstruation with irregular cycle; R10.9 Unspecified abdominal pain; N20.0 Calculus of kidney
CPT/HCPCS: 36415; 82627; 83498; 84146; 84402; 84403; 84443; 84702; 85027

== ENCOUNTER 2023-02-07 09:56 | Outpatient (AMB) | payer OTHER, SELFPAY ==
--- NOTE | 2023-02-07 09:56 | MHC.OFFVIS ---
Intake Intake Visit Reasons: 2w/KUB(set) Intake Note: Patient is present for follow up kidney stone/KUB (imaging 01/28/23) Urology Medications: none Blood Thinner: None Green Marketer Required: No Accompanied by: Self / Same As Patient Allergies bactrim Allergy (Severe, Uncoded 02/08/23 09:26) Unknown Medication List - Last Reconciled 02/08/23 by CINDI Lopez cholecalciferol (vitamin D3) 50 mcg PO DAILY hydroxyzine HCl 25 mg PO TID PRN 3 days pyridoxine (vitamin B6) 100 mg PO DAILY 90 days riboflavin (vitamin B2) 100 mg PO DAILY 30 days sumatriptan succinate take 1 tab at onset of headache; if no relief may repeat 1 tab after at least 2 hrs; max = 4 tabs/24 hr PO topiramate 50 mg PO BEDTIME 30 days HPI HPI Comments History of Present Illness Details Sara is a very plesant 43 year old female patient of Dr. Gu. She has a past medical history of abnormal uterine bleeding migraine with aura, vitamin-D deficiency, obesity, smoker, and hirsutism. She is being followed up on today via telehealth for her history of nephrolithiasis. Recent KUB results reviewed with the patient today. A 7 mm left renal pole calculus is seen. No further urinary calculus is presently appreciated radiographically, with imaging, in particular of the right kidney, somewhat limited by overlapping bowel contents. When asked patient continues to report intermittent left-sided flank pain. discussed at length surveillance monitoring versus surgical intervention. Discussed risks and benefits of these interventions. She has a history of mixed calcium stone with high portion of carbonate apatite. She otherwise currently denies urinary urgency, urinary frequency, incontinence, nocturia, hematuria, dysuria, foul smelling urine, changes to urinary stream, fever, and or chills. She is happy with her current voiding parameters. When asked she reports to be drinking plenty of water daily and is compliant with vitamin B6 daily. Discussed near future further metabolic workup. All questions were answered. She otherwise offers no issues or concerns at this time Nephrolithiasis Longstanding Prior procedures October 2021 - ER visit with right-sided flank pain Imaging - 10/29 4 mm right proximal ureteric stone, 12 mm left lower pole stone - 01/29 renal ultrasound multiple left stones Intervention - 02/28 Left USR Stone composition - 02/28 mixed calcium oxalate monohydrate 35%, carbonate apatite 35% PFSH Medical History Hirsutism Lesion of cervix Dyspareunia, female Abnormal uterine bleeding (AUB) Dysmenorrhea Migraine with aura Female hirsutism Vitamin D deficiency Obesity (BMI 30-39.9) Smoker Gall[facility] Surgical History History of removal of calculus of renal pelvis through percutaneous nephrostomy Family History Mother Mental health disorder Depressed Social History Housing: Apartment Alcohol intake: never Patient Tobacco Use Status: Current everyday Tobacco user Tobacco use type: Cigarette Cigarettes Per Day: 6 e-Cigarette/Vaping Use: Never Used Second Hand Smoke Exposure: Yes service: No Current occupational status: unemployed Sexual orientation: Straight/Heterosexual Gender identity: Female Cognitive needs: No Hearing needs: No Vision needs: No Review of Systems Const Reports as per HPI Eyes Reports no additional complaints ENT Reports no additional complaints Card Reports no additional complaints Resp Reports no additional complaints GI Reports no additional complaints Reports as per HPI Neuro Reports as per HPI Psych Reports no additional complaints Endo Reports as per HPI Physical Exam Const General: cooperative Orientation/consciousness: patient oriented x3 Resp Effort & Inspection: able to speak in complete sentences Neuro General: patient oriented x3 Psych Speech and movement: Clear speech present Attitude: cooperative Thought process: Normal thought process present Thought content: Normal thought content present Insight: Good insight present (Psych) Judgement: Good judgement present (Psych) Results Reviewed Results Reviewed: Date of Service: 01/28/23 EXAMINATION: XR ABDOMEN KUB FINDINGS: The bowel gas pattern is normal with no evidence of ileus or obstruction. At the lower pole of the left kidney, a 7 mm nonobstructing calculus is seen. No further urinary calculus is appreciated. There are small pelvic phleboliths. No acute osseous abnormality is seen. 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 XR/XR KUB IMPRESSION: A 7 mm left renal lower pole calculus is seen. No further urinary calculus is presently appreciated radiographically, with imaging, in particular of the right kidney, somewhat limited by overlapping bowel contents. Assessment & Plan Assessment & Plan (1) Left flank pain: Code(s): R10.9 - Unspecified abdominal pain (2) Nephrolithiasis: Code(s): N20.0 - Calculus of kidney Plan: Plan Extracorporeal Shock Wave Lithotripsy We discussed the nature of the decision and reasonable alternatives for performing the above surgery. Interventions include chemical dissolution, ESWL, ureteroscopy with laser lithotripsy and stent placement, PCNL. ? Options such as medical therapy were discussed. The relative uncertainties and benefits related to each alternate procedure were adequately discussed. General surgical risks including, but not limited to, pain, bleeding, infection, myocardial infarction, pulmonary embolus, deep vein thrombosis and cerebrovascular accident which may result in further hospitalization were discussed.? Full disclosure of the procedure as well as all major risks, benefits and complications were discussed including but not limited to risks of bleeding, injury to the kidney with hematoma or ronan-hematoma, failure to fragments stone, potential for ureteric obstruction from stone passage and need for secondary procedures.? There is a small long-term risk of hypertension and a question domingo of diabetes.? Success rate of fragmentation and passage is approximately 70- 75%.? This is compared to the risks and benefits for ureteroscopy which has a higher success rate but is a more invasive procedure. The success rate of the procedure was discussed. Success of the procedure in the short-term does not necessarily guarantee that long-term success will be maintained. Suitable follow up will need to be maintained. The patient showed understanding of the discussion as well as the typical recovery time, and the outpatient nature of this procedure. Opportunity was given for questions. Repeat-back protocol used to confirm understanding. They wish to proceed with Left ESWL Plan Recent KUB results reviewed with the patient today; as noted above. Discussed surveillance monitoring versus surgical intervention with left-sided ESWL. Discussed risks and benefits of surveillance monitoring verses further surgical intervention. Discussed, educated, encouraged on the importance of drinking plenty of water daily. Continue vitamin B6 daily. Continue adding 1 oz of lemon juice to water daily. Will schedule for left-sided ESWL as discussed Follow-up status post left sided ESWl per Dr. Allan's orders or sooner with any issues, concerns, and or questions. Patient Instructions: The patient had an opportunity to ask questions regarding the treatment plan. All questions were answered. Physical exam, labs, and imaging were discussed and reviewed in detail. As well as risks, benefits, and discussion of treatment choices. No major barriers to understanding were identified. The patient expressed understanding and agreement with the above treatment plan. The patient was made aware they should contact our office by phone for worsening of their current condition, the appearance of new symptoms, or with any questions or concerns. Compliance is encouraged with any medications and follow up testing that is ordered. It is a privilege to be allowed the opportunity to participate in? your urological care.? Again, if you have any questions or concerns If you have any questions or concerns please do not hesitate to contact me. The office is [phone]. This note is constructed using voice recognition software. While every effort has been made to ensure accuracy route sales delivery drivers supervisor errors may have been included. Yours sincerely, STEVEN Lopez Telehealth Telehealth Location of provider rendering services: practice address Location of patient: address on file Patient Identification confirmed using: Name, : Yes Telehealth method: voice only Patient verbally consented to treatment: Yes Patient verbally consented to billing insurance company: Yes Patient informed of any privacy concerns related to visit: Yes Minutes spent on Phone/Video with Pt.: 15 Coding Level of Care Code Tele Est Pt Level 4 (96170) Diagnoses Left flank pain R10.9 Nephrolithiasis N20.0 Time Spent (min) 15
== END 2023-02-07 11:29 | disposition home or self-care (01) ==
LOC: HO.HUSH 09:56
PROVIDERS: PCP Internal Medicine; Visit Provider Nurse Practitioner Family
DX: R10.9 Unspecified abdominal pain (principal); N20.0 Calculus of kidney
CPT/HCPCS: 99214

== ENCOUNTER 2023-02-13 12:02 | Outpatient (AMB) | payer OTHER, SELFPAY ==
--- NOTE | 2023-02-13 12:45 | A.OFFVIS_ITS ---
Intake Vital Signs 02/13/23 12:54 Height 5 ft 2 in Weight 206 lb BMI 37.7 BP 140/92 H Intake Visit Reasons: U/S results /EMB Allergies bactrim Allergy (Severe, Uncoded 02/13/23 12:54) Unknown Is last menstrual period known: Yes Last menstrual period: 02/11/23 HPI HPI Comments History of Present Illness Details Patient is here for an ultrasound follow-up in in EMB due to AUB. She declines having the EMB today due to having her. Currently he would like to postpone it until next week. [facility] Medical History Hirsutism Lesion of cervix Dyspareunia, female Abnormal uterine bleeding (AUB) Dysmenorrhea Migraine with aura Female hirsutism Vitamin D deficiency Obesity (BMI 30-39.9) Smoker Gallstone Surgical History History of removal of calculus of renal pelvis through percutaneous nephrostomy Family History Mother Mental health disorder Depressed Social History Housing: Apartment Alcohol intake: never Patient Tobacco Use Status: Current everyday Tobacco user Tobacco use type: Cigarette Cigarettes Per Day: 6 e-Cigarette/Vaping Use: Never Used Second Hand Smoke Exposure: Yes service: No Current occupational status: unemployed Sexual orientation: Straight/Heterosexual Gender identity: Female Cognitive needs: No Hearing needs: No Vision needs: No Female Reproductive History Menstrual Date of last menstrual period: 02/11/23 Physical Exam Vital Signs: Last Vital Signs BP 140/92 H 02/13/23 12:54 BMI result Body Mass Index 37.7 Const General: cooperative, healthy appearing and no acute distress Results AMB Test Urine AMB Test Urine Negative Last Edit by JENNIFER Mendoza on 02/13/23 12:57 Results Reviewed Results Reviewed: [address] [address] Ultrasound Report Signed Patient: Sara Frye MR#: [id number] : 1980 Acct:[id number] Age/Sex: 42 / F ADM Date: 01/10/23 Loc: HO.US Attending Dr: Calli Hdez CNM Ordering Physician: Calli Hdez CNM Date of Service: 01/10/23 Procedure(s): US pelvic and transvaginal Accession Number(s): [id number] cc: Nathaniel Gu MD; Calli Hdez CNM~ EXAMINATION: US PELVIS CLINICAL INFORMATION: Abnormal uterine and vaginal bleeding COMPARISON: None TECHNIQUE: Ultrasound of the pelvis is performed using both transabdominal and transvaginal transducers along with Doppler. Transvaginal imaging is performed due to inadequate visualization transabdominally. FINDINGS: Uterus: The uterus is retroverted and retroflexed and measures 7.9 x 4.0 x 5.8 cm. The double wall endometrial thickness is 1.3 cm On transvaginal ultrasound the uterus is smooth in contour and has normal myometrial echogenicity. No visible fibroid. Small nabothian cysts seen in the cervix. Adnexa: Both ovaries are visualized. There is normal color flow to the adnexa. There is no ovarian torsion. There is no pelvic ascites or fluid collection. Right ovary measures 3.2 x 1.7 x 2.7 cm. Volume 7.7 mL. A small oblique corpus luteal cyst is visualized measuring 1.8 x 1.3 x 1.4 cm. Left ovary measures 2.0 1.8 x 1.1 cm. Volume 2.2 mL. No focal lesion seen. There is no free fluid in the cul-de-sac. US/US pelvic and transvaginal IMPRESSION: 1. Small nabothian cysts in the cervix. 2. Small corpus luteal cyst right ovary. 3. The uterus is unremarkable. However the endometrium is mildly thickened measuring 1.3 cm. 4. There is no free fluid in the cul-de-sac. Dictated By: Massimo Villegas MD Signed By: <Electronically signed by Massimo Villegas MD in OV> Assessment & Plan Assessment & Plan (1) Encounter to discuss test results: Code(s): Z71.2 - Person consulting for explanation of examination or test findings (2) Abnormal uterine bleeding (AUB): Code(s): N93.9 - Abnormal uterine and vaginal bleeding, unspecified Plan Discuss test results ultrasound finding. All of her questions and concerns were addressed to the best of my ability and shared decision making. She is agreeable to the plan of care. Patient rescheduled for 1 week later same time. Discussed preparation for that visit. Orders: Orders AMB HCG Urine Test Today Z32.02 - Encounter for test, result negative Coding Level of Care Code Est Pt Level 3 (10405) Diagnoses Encounter to discuss test results Z71.2 Abnormal uterine bleeding (AUB) N93.9
[2023-02-13 12:54] VITALS: BP 140/92; BMI 37.7
== END 2023-02-13 14:36 | disposition home or self-care (01) ==
PROVIDERS: PCP Internal Medicine; Visit Provider Advanced Practice Midwife
DX: Z71.2 Person consulting for explanation of examination or test findings (principal); N93.9 Abnormal uterine and vaginal bleeding, unspecified; Z32.02 Encounter for pregnancy test, result negative
CPT/HCPCS: 99213

== ENCOUNTER → 2023-02-13 12:02 | Outpatient (BNVA) | payer OTHER, SELFPAY | PROVIDERS: PCP Internal Medicine; Visit Provider Advanced Practice Midwife | DX: Z71.2 Person consulting for explanation of examination or test findings (principal); N93.9 Abnormal uterine and vaginal bleeding, unspecified | CPT/HCPCS: 81025; 99212 ==

== ENCOUNTER 2023-05-01 08:43 | Outpatient (AMB) | payer OTHER, SELFPAY ==
--- NOTE | 2023-05-01 08:48 | MHC.PC.OV ---
Vital Signs 05/01/23 08:52 Height 5 ft 2 in Weight 203 lb 4 oz BMI 37.2 BP 122/80 Blood Pressure Location Lt brachial Position Sitting Respiration 16 Pulse 82 Pulse Source Pulse Oximeter Pulse Oximetry (%) 96 Oxygen Delivery Method Room Air Intake Visit Reasons: ? of gallbladder issues Intake Note: Dr. Gu's patient has come in complaining of oblique stomach pain persisting since last week. They sought care at [facility] in [place], where they were advised it might be related to a gallbladder problem. Business Support Liaison Required: No Accompanied by: Son Allergies bactrim Allergy (Severe, Uncoded 05/01/23 09:08) Unknown Medication List - Last Reconciled 05/01/23 by Jason Madrigal PA-C hydroxyzine HCl 25 mg PO TID PRN 3 days pyridoxine (vitamin B6) 100 mg PO DAILY 90 days riboflavin (vitamin B2) 100 mg PO DAILY 30 days sumatriptan succinate take 1 tab at onset of headache; if no relief may repeat 1 tab after at least 2 hrs; max = 4 tabs/24 hr PO topiramate 50 mg PO BEDTIME Tobacco use date assessed: 05/01/23 HPI ? of gallbladder issues HPI Details Patient is a 43-year-old female here today for problem visit. This the 1st time I am meeting this 43-year-old female with a past medical history significant obesity, vitamin-D deficiency, smoker, impaired glucose metabolism. She reports over the last week having right upper quadrant/flank pain. Has had history of nephrolithiasis. She reports whenever she eats she does have a hormone sharp pain in her right upper quadrant and epigastrium. [facility] Medical History Hirsutism Lesion of cervix Dyspareunia, female Abnormal uterine bleeding (AUB) Dysmenorrhea Migraine with aura Female hirsutism Vitamin D deficiency Obesity (BMI 30-39.9) Smoker Gallstone Surgical History History of removal of calculus of renal pelvis through percutaneous nephrostomy Family History Mother Mental health disorder Depressed Social History Housing: Apartment Alcohol intake: never Patient Tobacco Use Status: Current everyday Tobacco user Tobacco use type: Cigarette Cigarettes Per Day: 6 e-Cigarette/Vaping Use: Never Used Second Hand Smoke Exposure: Yes service: No Current occupational status: unemployed Sexual orientation: Straight/Heterosexual Gender identity: Female Cognitive needs: No Hearing needs: No Vision needs: No Questionnaire PHQ-9 Over the last 2 weeks, how often have you been bothered by any of the following problems? 1. Little interest or pleasure in doing things: not at all 2. Feeling down, depressed, or hopeless: not at all 3. Trouble falling or staying asleep, or sleeping too much: not at all 4. Feeling tired or having little energy: not at all 5. Poor appetite or overeating: not at all 6. Feeling bad about yourself - or that you are a failure or have let yourself or your family down: not at all 7. Trouble concentrating on things, such as reading the newspaper or watching television: not at all 8. Moving or speaking so slowly that other people could have noticed. Or the opposite - being so fidgety or restless that you have been moving around a lot more than usual: not at all 9. Thoughts that you would be better off or of hurting yourself in some way: not at all Total score: 0 Depression Screening Interpretation: Negative Depression Screening Done: Yes 19077 - PHQ-9 Billing: Yes Source: Developed by Drs. Sammy Lisa, Kimberli Estrada, Jorge Huang and colleagues, with an educational oc from [employer]. Thrive Questionnaire Date Thrive assessed: 05/01/23 I am a: Patient What is your living situation today?: I have a steady place to live Within the past 12 months, did the food you bought not last and you didn't have the money to get more?: Never true Within the past 12 months, did you worry whether your food would run out before you got money to buy more?: Never true Do you have trouble paying for medicines?: No Do you have trouble getting transportation to medical appointments?: No Do you have trouble paying your heating and electricity bill?: No Do you have trouble taking care of your child, family member or friend?: No Do you have trouble with day-to-day activities such as bathing, preparing meals, shopping, managing finances, etc.?: No Are you currently unemployed and looking for a job?: No Are you interested in more education?: No Please select the resources that you would like help with: None Currently or been in a relationship where the following occur: no concerns reported THRIVE Score: 0 AUDIT C Alcohol Use Questionnaire (AUDIT-C) 1. How often do you have a drink containing alcohol?: Never 3. How often do you have six or more drinks on one occasion?: Never Total Score: 0 YULIA-7 AMB Questionnaire YULIA-7 Date YULIA - 7 assessed: 05/01/23 Feeling nervous, anxious, or on edge: 0 = Not at all Not being able to stop or control worryin = Not at all Worrying too much about different things: 0 = Not at all Trouble relaxin = Not at all Being so restless that it is hard to sit still: 0 = Not at all Becoming easily annoyed or irritable: 0 = Not at all Feeling afraid as if something awful might happen: 0 = Not at all Total YULIA-7 score (0-4 normal; 5-9 mild; 10-14 moderate; 15-21 severe): 0 Source: Developed by Drs. Sammy Lisa, Kimberli Estrada, Jorge Huang and colleagues, with an educational oc from [employer]. YULIA-7 Assessment Billing YULIA-7 Assessment Tool: YULIA-7 Assessment 49020 Review of Systems Const Denies headache(s) Eyes Denies loss of vision ENT Denies vertigo, Denies dizziness, Denies headache(s) and Denies sore throat Card Denies chest pain, Denies leg edema and Denies lightheadedness Resp Denies cough, Denies hemoptysis and Denies wheezing GI Denies abdominal pain, Denies melena, Denies constipation, Denies diarrhea and Denies vomiting Denies urinary frequency, Denies dysuria and Denies urinary urgency Musc Denies arthralgias, Denies joint swelling, Denies numbness and Denies tingling Neuro Denies Abnormal speech present, Denies behavioral changes, Denies vertigo, Denies dizziness, Denies headache(s), Denies loss of vision, Denies memory loss, Denies numbness and Denies tingling Psych Denies anxiety, Denies behavioral changes, Denies depression, Denies memory loss and Denies panic attacks [place]/Lymph Denies easy bleeding and Denies easy bruising Aller/Immun Denies wheezing Physical exam (Primary Care) Vital Signs: Last Vital Signs Pulse 82 05/01/23 08:52 Resp 16 05/01/23 08:52 BP 122/80 05/01/23 08:52 Pulse Ox 96 05/01/23 08:52 Oxygen Delivery Method Room Air 05/01/23 08:52 BMI result Body Mass Index 37.2 Tobacco/Smoking Status: Tobacco use Status Tobacco use date assessed 05/01/23 05/01/23 08:53 Patient Tobacco Use Status Current everyday Tobacco 05/01/23 08:48 Tobacco use type Cigarette 05/01/23 08:48 e-Cigarette/Vaping Use Never Used 05/01/23 08:48 PHQ-9: PHQ-9 Score PHQ-9: Total score 0 05/01/23 09:09 Depression Screening Interpretation: Negative Thrive Assessment: Date of Thrive Assessment Date Thrive assessed 05/01/23 05/01/23 09:03 Currently or been in a relationship where the following occur: no concerns reported Const Other: Obese General: healthy appearing, no acute distress, alert and awake Nutritional Appearance: well nourished Orientation/consciousness: oriented to person, oriented to place and oriented to time HENMT Ears: TM's normal bilaterally General nose exam: Normal nasal mucous membranes and turbinates present Eyes Conjunctivae: conjunctivae normal Sclerae: sclerae normal Pupils: Equal, round and reactive pupils present Neck Neck: Yes no lymphadenopathy and Yes no JVD Thyroid: Thyroid normal Carotids: no bruits Resp Effort & Inspection: normal respiratory effort and not tachypneic Auscultation: no crackles, no rales, no rhonchi and no wheezes Cardio Rate: regular rate Rhythm: regular rhythm Heart sounds: no murmurs and normal S1 and S2 GI Palpation (GI): Soft to palpation, Tenderness to palpation present (GI) in the epigastrum and in the RUQ, no hepatomegaly and no splenomegaly Auscultation: normal bowel sounds Skin General skin exam: no rashes or lesions noted and dry skin Neuro General: oriented to person, oriented to place and oriented to time Cranial nerves: Yes Equal, round and reactive pupils present Speech: No Abnormal speech present Gait exam (Neuro): Normal gait present Motor exam (neuro): no tremor noted Extrem Right upper extremity: full ROM Left upper extremity: full ROM Right lower extremity: full ROM; no edema Left lower extremity: full ROM; no edema Psych Mental Status: mental status grossly normal Speech and movement: Normal speech and movement present Affect: normal affect Attitude: cooperative Thought process: Normal thought process present Assessment and Plan Assessment & Plan (1) Biliary colic: Code(s): K80.50 - Calculus of bile duct without cholangitis or cholecystitis without obstruction Plan: Patient's signs and symptoms concerning for biliary colic. She does have risk factors for gallstones and cholecystitis. Does some tenderness to palpation in the epigastrium and right upper quadrant of the abdominal on physical exam. Refer to general surgeon for possible elective cholecystectomy. Will send for ultrasound to confirm suspicions of gallstones. (2) RUQ abdominal pain: Code(s): R10.11 - Right upper quadrant pain Orders: Orders US abdomen limited Today R10.11 - Right upper quadrant pain Referrals General Surgery Referral R10.11 - Right upper quadrant pain Medications: New omeprazole 20 mg PO DAILY 30 caps 1RF R10.11 - Right upper quadrant pain Changed From topiramate 50 mg PO BEDTIME 30 days 30 tabs 3RF G43.909 - Migraine, unspecified, not intractable, without status migrainosus To topiramate 50 mg PO BEDTIME G43.909 - Migraine, unspecified, not intractable, without status migrainosus Coding Level of Care Code Est Pt Level 3 (69079) Diagnoses Biliary colic K80.50 RUQ abdominal pain R10.11 Additional Codes YULIA-7 Assessment Billing - YULIA-7 Assessment Tool: YULIA-7 Assessment 16791 ([id number])
[2023-05-01 08:52] VITALS: BP 122/80; PULSE 82; RESP 16; O2SAT 96; BMI 37.2
== END 2023-05-01 09:21 | disposition home or self-care (01) ==
PROVIDERS: PCP Internal Medicine; Visit Provider Physician Assistant
DX: K80.50 Calculus of bile duct without cholangitis or cholecystitis without obstruction (principal); R10.11 Right upper quadrant pain; G43.909 Migraine, unspecified, not intractable, without status migrainosus
CPT/HCPCS: 99213

== ENCOUNTER 2023-05-21 09:22 | Outpatient (REF) | payer OTHER, SELFPAY ==
--- NOTE | ~2023-05-21 | US_ITS ---
EXAMINATION: US ABDOMEN LIMITED CLINICAL INFORMATION: Right upper quadrant pain. COMPARISON: None available. TECHNIQUE: Real-time imaging of the right upper quadrant abdominal viscera. FINDINGS: PANCREAS: Normal. LIVER: The liver is normal in size. The liver contour is normal. Parenchymal echogenicity is normal. No focal hepatic lesion. Dilated intrahepatic ducts.. GALLBLADDER: Wall echo shadow sign indicating diffuse cholelithiasis. No evidence of acute cholecystitis COMMON BILE DUCT: Mildly dilated up to 0.7 cm. RIGHT KIDNEY: Normal. No hydronephrosis. No renal calculi or focal parenchymal lesions. The kidney measures 12.5 cm in maximum dimension. FREE FLUID: None. US/US abdomen limited IMPRESSION: Cholelithiasis without secondary evidence of acute cholecystitis. Dilated intrahepatic and extrahepatic biliary tree. Cannot exclude obstructing lesion or choledocholithiasis. Consider ERCP versus MRCP as clinically appropriate.
== END 2023-05-21 09:23 | disposition home or self-care (01) ==
LOC: HO.US 09:22
PROVIDERS: PCP Internal Medicine; Visit Provider Physician Assistant
DX: R10.11 Right upper quadrant pain (principal)
CPT/HCPCS: 76705

== ENCOUNTER 2023-05-27 09:50 | Outpatient (AMB) | payer OTHER, SELFPAY ==
--- NOTE | 2023-05-27 09:55 | MHC.OFFVIS ---
Intake Vital Signs 05/27/23 10:02 Height 5 ft 2 in Weight 199 lb BMI 36.4 BP 120/69 Blood Pressure Location Rt brachial Position Sitting Pulse 80 Intake Visit Reasons: RUQ pain ? gallstones Intake Note: Patient referred by PCP Jason Madrigal PA-C for gallstones. Patient c/o: RUQ pain and spreads to mid upper abd, constipation. ABD US: 05-21-23. People Greeter Required: No Accompanied by: Self / Same As Patient Allergies bactrim Allergy (Severe, Uncoded 05/27/23 09:59) Unknown HPI HPI Comments History of Present Illness Details Patient presents with a several month history of epigastric/right upper quadrant pain radiating around to her back. She had workup for this including sonogram demonstrated cholelithiasis. Because of the frequency and severity of her symptoms, she wishes have her gallbladder this. Patient has a history of chronic constipation. She takes laxative for this. She has no other GI issues or complaints. She is tolerating her diet. She has never been jaundiced before. Chart was reviewed and patient evaluated [facility] Medical History Hirsutism Lesion of cervix Dyspareunia, female Abnormal uterine bleeding (AUB) Dysmenorrhea Migraine with aura Female hirsutism Vitamin D deficiency Obesity (BMI 30-39.9) Smoker Gallstone Surgical History History of removal of calculus of renal pelvis through percutaneous nephrostomy Family History Mother Mental health disorder Depressed Social History Housing: Apartment Alcohol intake: never Patient Tobacco Use Status: Current everyday Tobacco user Tobacco use type: Cigarette Cigarettes Per Day: 6 e-Cigarette/Vaping Use: Never Used Second Hand Smoke Exposure: Yes service: No Current occupational status: unemployed Sexual orientation: Straight/Heterosexual Gender identity: Female Cognitive needs: No Hearing needs: No Vision needs: No Physical Exam Vital Signs: Last Vital Signs Pulse 80 05/27/23 10:02 BP 120/69 05/27/23 10:02 BMI result Body Mass Index 36.4 Chest Other: Chest breath sounds bilaterally, HS 1 in 2 GI Other: Abdomen corpulent, soft, benign Assessment & Plan Assessment & Plan (1) Biliary colic: Code(s): K80.50 - Calculus of bile duct without cholangitis or cholecystitis without obstruction (2) RUQ abdominal pain: Code(s): R10.11 - Right upper quadrant pain Plan Risks, benefits, alternatives laparoscopic possible open cholecystectomy reviewed the patient and included but not limited to bleeding, infection, recurrence of symptoms, numbness, pain, scarring, bowel or bile duct injury or leak and the patient wishes to proceed. All questions answered. Arrangements were made for this. Coding Level of Care Code New Pt Level 5 (49732) Diagnoses Biliary colic K80.50 RUQ abdominal pain R10.11
[2023-05-27 10:02] VITALS: BP 120/69; PULSE 80; BMI 36.4
== END 2023-05-27 10:18 | disposition home or self-care (01) ==
PROVIDERS: PCP Internal Medicine; Referring Provider Physician Assistant; Visit Provider Surgery
DX: K80.50 Calculus of bile duct without cholangitis or cholecystitis without obstruction (principal); R10.11 Right upper quadrant pain
CPT/HCPCS: 99204

== ENCOUNTER → 2023-05-27 09:50 | Outpatient (BNVA) | payer OTHER, SELFPAY | PROVIDERS: PCP Internal Medicine; Referring Provider Physician Assistant; Visit Provider Surgery | DX: K80.50 Calculus of bile duct without cholangitis or cholecystitis without obstruction (principal); R10.11 Right upper quadrant pain | CPT/HCPCS: 99202 ==

== ENCOUNTER 2023-06-05 11:34 | Outpatient (REF) | payer OTHER, SELFPAY ==
--- NOTE | ~2023-06-05 | MM_ITS ---
EXAMINATION: MM SCREENING DIGITAL BREAST TOMOSYNTHESIS, BILATERAL CLINICAL INFORMATION: Screening. Asymptomatic. COMPARISON: Mammography: This study is compared with prior exams dating back to 2022. TECHNIQUE: Digital breast tomosynthesis is performed in both the craniocaudal and mediolateral oblique views along with computer-aided detection (CAD). Synthesized 2D images are generated from the tomosynthesis. FINDINGS: There are scattered areas of fibroglandular density (ACR BI-RADS breast composition Category b). There are no significant masses, abnormal calcifications, or other abnormalities. MM/MM tomosynthesis screening BI IMPRESSION: No mammographic evidence of malignancy. ASSESSMENT: BI-RADS BI-RADS 1 - Negative RECOMMENDATION: Routine annual mammography screening. 1 year F/U This examination should not preclude the clinical evaluation of a suspicious palpable abnormality. This patient's information was entered into a reminder system with a target due date for their next mammogram.
== END 2023-06-05 11:35 | disposition home or self-care (01) ==
LOC: HO.MAMMO 11:34
PROVIDERS: PCP Internal Medicine; Visit Provider Internal Medicine
DX: Z12.31 Encounter for screening mammogram for malignant neoplasm of breast (principal)
CPT/HCPCS: 77063; 77067

== ENCOUNTER → 2023-06-05 11:45 | Outpatient (BNV) | payer OTHER, SELFPAY | PROVIDERS: PCP Internal Medicine; Visit Provider Radiology Diagnostic Radiology | DX: Z12.31 Encounter for screening mammogram for malignant neoplasm of breast (principal) | CPT/HCPCS: 77063; 77067 ==

== ENCOUNTER 2023-06-06 09:52 | Day surgery (SDC) | payer OTHER, SELFPAY ==
[2023-06-04 14:14] VITALS: BMI 36.4
--- NOTE | 2023-06-05 14:43 | MHC.SHP ---
Pre-Procedural Eval Section A - 24 Hr Update-Section A only Date of Service: 06/05/23 The patient is an INPATIENT: No Changes since office visit: No Cold of Flu in the past 2 weeks, No New Medical Problems, No Changes in Medication and No Patient answered all questions Section B - Complete if H&P > 30 days Chief Complaint: Calculus of bile duct without cholangitis or moira Allergies: Allergies Allergy/AdvReac Type Severity Reaction Status Date / Time sulfamethoxazole Allergy Unknown Unknown Verified 06/04/23 14:15 [From Bactrim] trimethoprim [From Bactrim] Allergy Unknown Unknown Verified 06/04/23 14:15 Plan I have reviewed the history and physical and performed a pertinent physical examination on my patient. No changes have occurred unless specified. Time Spent With Patient Time: Total time managing care of this patient today ____ minutes.
[2023-06-06] VITALS (15 sets, daily range): BP systolic 115–146; BP diastolic 61–116; PULSE 68–86; RESP 14–115; TEMP 36.8; O2SAT 96–100; BMI 35.8
[2023-06-06] MEDS: Lactated Ringers 1,000 ML 100 ML IVCONT (11:06)
[2023-06-06 11:09] LABS: UPreg QC Valid YES; Urine Pregnancy NEGATIVE (NEGATIVE)
--- NOTE | 2023-06-06 11:20 | HO.ANESPROP2 ---
Documented by User: Roseann Orosco NP 06/05/23 12:05 HPI - Anesthesia Eval Consult details Narrative: 43yo F for Cholecystectomy Laparoscopic vs Open PMFSH Active Problems Active Problems: All Active Problems RUQ abdominal pain (Acute) Biliary colic (Acute) Left flank pain (Acute) Potential exposure to STD (Acute) Foreign body in foot, left (Acute) Foot pain, left (Acute) Breast cancer screening by mammogram (Acute) Low back pain (Acute) Annual physical exam (Acute) Low vitamin D level (Acute) Impaired fasting glucose (Acute) Right lumbar radiculopathy (Acute) Nephrolithiasis (Acute) Numbness of toes (Acute) Screening for hypothyroidism (Acute) Screening for hyperlipidemia (Acute) LUQ pain (Acute) Constipation (Acute) Migraine (Acute) Hirsutism (Acute) Lesion of cervix (Acute) Dyspareunia, female (Acute) Abnormal uterine bleeding (AUB) (Acute) Dysmenorrhea (Acute) Female hirsutism (Acute) Vitamin D deficiency (Acute) Obesity (BMI 30-39.9) (Acute) Smoker (Acute) Past Medical History Medical History Renal calculi Back pain Migraine Hirsutism Lesion of cervix Dyspareunia, female Abnormal uterine bleeding (AUB) Dysmenorrhea Migraine with aura Vitamin D deficiency Female hirsutism Obesity (BMI 30-39.9) Smoker Gallstone Family History Family History Mother Mental health disorder Depressed Family history of problems with anesthesia: No Surgical History Surgical History Hx of lithotripsy Hx of cystoscopy History of removal of calculus of renal pelvis through percutaneous nephrostomy History of Problems with Anesthesia: No Social History Social History Housing: Apartment Alcohol intake: never Patient Tobacco Use Status: Current everyday Tobacco user Tobacco use type: Cigarette Cigarettes Per Day: 6 e-Cigarette/Vaping Use: Never Used Second Hand Smoke Exposure: Yes Use of substances other than those prescribed or required for medical reasons: No Are you DNR?: No Advance Directives: No Advance Directives Information Provided: Yes service: No Current occupational status: unemployed Sexual orientation: Straight/Heterosexual Gender identity: Female Cognitive needs: No Hearing needs: No Vision needs: No Meds Allergies Allergy/AdvReac Type Severity Reaction Status Date / Time sulfamethoxazole Allergy Unknown Unknown Verified 06/06/23 10:35 [From Bactrim] trimethoprim [From Bactrim] Allergy Unknown Unknown Verified 06/06/23 10:35 Home Medications Medication Instructions Recorded Confirmed Last Taken Type topiramate 50 mg tablet 50 mg PO BEDTIME 05/01/23 06/06/23 Unknown History xwyhfes-lhqxumunanfom-rxpqyarr 250 2 tab PO Q6H PRN Migraine Headache 06/06/23 06/06/23 Unknown History mg-250 mg-65 mg tablet (Excedrin Migraine) Exam Height,Weight and Vital Signs: Height 5 ft 2 in Weight 90.265 kg Pertinent Lab Results Pertinent Lab Results: Laboratory Tests 02/07/23 13:38 WBC 7.4 Hgb 13.9 Hct 42.6 Plt Count 255 Assessment and Plan Assessment Anesthesia Assessment: Chart Reviewed Final Anesthetic Review Family History of Problems with Anesthesia: No History of Problems with Anesthesia: No Documented by User: Hilaria Khoury DO 06/06/23 11:27 [facility] Past Medical History Medical History Renal calculi Back pain Migraine Hirsutism Lesion of cervix Dyspareunia, female Abnormal uterine bleeding (AUB) Dysmenorrhea Migraine with aura Vitamin D deficiency Female hirsutism Obesity (BMI 30-39.9) Smoker Gallstone Family History Family History Mother Mental health disorder Depressed Family history of problems with anesthesia: No Surgical History Surgical History Hx of lithotripsy Hx of cystoscopy History of removal of calculus of renal pelvis through percutaneous nephrostomy History of Problems with Anesthesia: No Social History Social History Housing: Apartment Alcohol intake: never Patient Tobacco Use Status: Current everyday Tobacco user Tobacco use type: Cigarette Cigarettes Per Day: 6 e-Cigarette/Vaping Use: Never Used Second Hand Smoke Exposure: Yes Use of substances other than those prescribed or required for medical reasons: No Are you DNR?: No Advance Directives: No Advance Directives Information Provided: Yes service: No Current occupational status: unemployed Sexual orientation: Straight/Heterosexual Gender identity: Female Cognitive needs: No Hearing needs: No Vision needs: No Meds Allergies Allergy/AdvReac Type Severity Reaction Status Date / Time sulfamethoxazole Allergy Unknown Unknown Verified 06/06/23 10:35 [From Bactrim] trimethoprim [From Bactrim] Allergy Unknown Unknown Verified 06/06/23 10:35 Home Medications Medication Instructions Recorded Confirmed Last Taken Type topiramate 50 mg tablet 50 mg PO BEDTIME 05/01/23 06/06/23 Unknown History phqfles-jqeclxbnrscbg-qdtrgphu 250 2 tab PO Q6H PRN Migraine Headache 06/06/23 06/06/23 Unknown History mg-250 mg-65 mg tablet (Excedrin Migraine) Exam Exam Date and Time: June 06, 2023 1120 Height,Weight and Vital Signs: Height 5 ft 2 in Weight 90.265 kg Height 5 ft 2 in Weight 88.904 kg Vital Signs Temperature 98.3 F 06/06/23 11:04 Pulse Rate 72 06/06/23 11:04 Respiratory Rate 115 H 06/06/23 11:04 Blood Pressure 115/65 06/06/23 11:04 Pulse Oximetry 96 06/06/23 11:04 Oxygen Delivery Method Room Air 06/06/23 11:04 Temperature 98.3 F 06/06/23 11:04 Pulse Rate 72 06/06/23 11:04 Respiratory Rate 115 H 06/06/23 11:04 Blood Pressure 115/65 06/06/23 11:04 Pulse Oximetry 96 06/06/23 11:04 Oxygen Delivery Method Room Air 06/06/23 11:04 Airway Mallampati Class: I TM Dist: >3cm Neck ROM: Full Loose/Missing/Broken Teeth: No (patient denies any loose or broken teeth) Heart: S1S2 Lungs: CTAB Assessment and Plan Assessment Anesthesia Assessment: Anesthesia Plan Discussed and Chart Reviewed Final Anesthetic Review Family History of Problems with Anesthesia: No History of Problems with Anesthesia: No NPO: Yes ASA Class: II Final Preanesthetic Review: No Changes in Pt Med Stat, Meds/Allgs Chart Reviewed, Consent Obtained/Reviewed and Anes Risks/Benef Reviewed Patient Risk: Low Procedure Risk: Low Anesthetic Plan Anesthetic Plan: GA and Agree w/ Assess. and Plan Disposition: Standard PACU
--- NOTE | 2023-06-06 13:12 | P.OP_ITS ---
Operative Note Operative Note Date of Service: 06/06/23 Narrative: Preoperative diagnosis: [] Symptomatic gallbladder Postop diagnosis: [] The same Procedure [] laparoscopic cholecystectomy, liver biopsy Surgeon: [] [employer] Associate: [] Type of Anesthesia: [] General Indication for surgery: [] Corpulent abdomen. Gallbladder with omental adhesions to it. Intrahepatic gallbladder. Patient had miliary type seeding of the liver a superficial white Superficial lesions (miliary) superficial wedge resection of liver was obtained along with photos Findings: [] Patient brought to the operating room, placed on operative table supine position, after adequate level of general anesthesia was induced, the patient's abdomen was prepped and draped in usual sterile fashion. Using a supraumbilical curvilinear incision, Galvan technique was used to insufflate abdominal cavity to 15 mm of CO2. The patient was placed in reverse Trendelenburg he patient's abdomen was prepped and draped in usual sterile fashion. Upper midline and right subcostal ports were placed under direct laparoscopic view. Findings were as noted above. Gallbladder was grasped using laparoscopic graspers and retracted superiorly and laterally. Soft omental adhesions swept off the gallbladder with the hilum was approached. Common bile duct was identified and preserved throughout the procedure. Cystic artery and cystic duct were each identified, circumferentially skeletonized, traced directly into the gallbladder and critical view obtained. Each was clipped proximally x2, distally x1, and transected gallbladder which was moderately intrahepatic was then cauterized from the gallbladder fossa using Bovie. Specimen placed in an Endo-Catch bag. Next using Bovie, a superficial wedge resection was obtained of several of the superficial miliary lesions of the liver and also placed in the Endo-Catch bag and retrieved from abdominal cavity and sent to pathology.. Abdominal cavity was copiously irrigated, secured hemostasis, and closed in the following manner; all ports removed under direct laparoscopic view. Umbilical wound has fascia reapproximated using interrupted 0 Vicryl sutures. Skin wounds were closed using subcuticular 4-0 Vicryl sutures followed by Steri-Strips and sterile dressings. Wounds were infiltrated with 0.5% Marcaine at completion. Sponge, needle, and instrument counts reported correct. Patient tolerated the procedure well and emerged from anesthesia stable condition. EBL minimal
[2023-06-06] MEDS: HYDROmorphone HCl 0.5 MG/0.5 ML SYRINGE IVPUSH ×3 (13:40→14:02)
[2023-06-06] MEDS: fentaNYL citrate/PF 100 MCG/2 ML VIAL 50 MCG IVPUSH (14:28)
[2023-06-06] MEDS: Haloperidol Lactate 5 MG/ML VIAL 1 MG IVPUSH (14:52)
== END 2023-06-06 15:19 | disposition home or self-care (01) ==
PROVIDERS: Nurse Practitioner; PCP Internal Medicine; Visit Provider Surgery
PROC: 0FT44ZZ Resection of Gallbladder, Percutaneous Endoscopic Approach (ICD-10-PCS; CPT 47562; principal; 2023-06-06 12:00)
DX: K80.12 Calculus of gallbladder with acute and chronic cholecystitis without obstruction (principal); K82.8 Other specified diseases of gallbladder; K76.89 Other specified diseases of liver; Q85.89 Other phakomatoses, not elsewhere classified; E55.9 Vitamin D deficiency, unspecified; Z79.1 Long term (current) use of non-steroidal anti-inflammatories (NSAID); Z79.82 Long term (current) use of aspirin; Z79.899 Other long term (current) drug therapy; Z88.1 Allergy status to other antibiotic agents; Z88.2 Allergy status to sulfonamides; Z56.0 Unemployment, unspecified; F17.210 Nicotine dependence, cigarettes, uncomplicated
CPT/HCPCS: 47562; 47001; 81025; 88304; 88307; 88313; J0131; J0690; J1100; J1170; J1630; J2250; J2405; J2550; J2704; J2795; J3010

== ENCOUNTER → 2023-06-06 09:52 | Outpatient (BNV) | payer OTHER, SELFPAY | PROVIDERS: PCP Internal Medicine; Visit Provider Surgery | DX: K80.50 Calculus of bile duct without cholangitis or cholecystitis without obstruction (principal); Q44.6 Cystic disease of liver | CPT/HCPCS: 47379; 47562 ==

== ENCOUNTER 2023-06-18 12:58 | Outpatient (AMB) | payer OTHER, SELFPAY ==
--- NOTE | 2023-06-18 13:02 | MHC.OFFVIS ---
Intake Intake Visit Reasons: S/p lap vs open cholecystectomy Intake Note: Patient here s/p lap moira and liver bx. Reports incisions healing well. Patient c/o: pain when laying down. Still taking rx pain meds. SX: 06-06-23 Director Of Graduate Medical Education Required: No Allergies sulfamethoxazole [From Bactrim] Allergy (Unknown, Verified 06/18/23 13:04) Unknown trimethoprim [From Bactrim] Allergy (Unknown, Verified 06/18/23 13:04) Unknown HPI HPI Comments History of Present Illness Details Patient presents for follow-up. She has tolerating a diet. She is having her usual bowel habits which are occasionally constipated. She is increasing her activity level. She has minimal incisional discomfort. Pathology results were reviewed including superficial hemangioma liver, which are benign [facility] Medical History Renal calculi Back pain Migraine Hirsutism Lesion of cervix Dyspareunia, female Abnormal uterine bleeding (AUB) Dysmenorrhea Migraine with aura Vitamin D deficiency Female hirsutism Obesity (BMI 30-39.9) Smoker Gallstone Surgical History History of liver biopsy (06/06/23) Hx laparoscopic cholecystectomy (06/06/23) Hx of lithotripsy Hx of cystoscopy History of removal of calculus of renal pelvis through percutaneous nephrostomy Family History Mother Mental health disorder Depressed Social History Housing: Apartment Alcohol intake: never Comment: COUNTS CORRECT Patient Tobacco Use Status: Current everyday Tobacco user Tobacco use type: Cigarette Cigarettes Per Day: 6 e-Cigarette/Vaping Use: Never Used Second Hand Smoke Exposure: Yes service: No Current occupational status: unemployed Sexual orientation: Straight/Heterosexual Gender identity: Female Cognitive needs: No Hearing needs: No Vision needs: No Physical Exam Eyes Other: Anicteric GI Other: Abdomen soft. All wounds clean dry and intact with inguinal Assessment & Plan Assessment & Plan (1) Status post laparoscopic cholecystectomy: Code(s): Z90.49 - Acquired absence of other specified parts of digestive tract Plan Patient has been given local instructions, and will follow-up p.r.n.. All questions answered. Coding Level of Care Code Global (35651) Diagnoses Status post laparoscopic cholecystectomy Z90.49
== END 2023-06-18 13:10 | disposition home or self-care (01) ==
PROVIDERS: PCP Internal Medicine; Visit Provider Surgery
DX: Z90.49 Acquired absence of other specified parts of digestive tract (principal)
CPT/HCPCS: 99024

== ENCOUNTER → 2023-06-18 12:58 | Outpatient (BNVA) | payer OTHER, SELFPAY | PROVIDERS: PCP Internal Medicine; Visit Provider Surgery | DX: Z90.49 Acquired absence of other specified parts of digestive tract (principal) | CPT/HCPCS: 99212 ==

== ENCOUNTER 2023-06-30 10:06 | Outpatient (AMB) | payer OTHER, SELFPAY ==
--- NOTE | 2023-06-30 10:08 | A.OFFVIS_ITS ---
Vital Signs 06/30/23 10:09 Height 5 ft 2 in Weight 193 lb 9.054 oz BMI 35.4 BP 136/78 Blood Pressure Location Rt brachial Position Sitting Pulse 91 Pulse Source Pulse Oximeter Intake Visit Reasons: ultrasound showing dilated biliary tree. Intake Note: Pt presents to the office today for ultrasound results showing dilated biliary tree. Pt states she is feeling well and denies any GI concerns at this time. Allergies sulfamethoxazole [From Bactrim] Allergy (Unknown, Verified 06/30/23 10:15) Unknown trimethoprim [From Bactrim] Allergy (Unknown, Verified 06/30/23 10:15) Unknown HPI HPI ultrasound showing dilated biliary tree.: Details: 43-year-old female with past medical history of RUQ abdominal pain, biliary colic, nephrolithiasis, status post cholecystectomy, constipation, dysmenorrhea is here today for initial consultation. Patient originally was sent to our office for right upper quadrant pain, however at the same time PCP that order ultrasound that showed that patient had cholecystitis and was sent for cholecystectomy that was performed just few weeks ago on June 05. Patient has been doing well since surgery. Denies any abdominal pain or discomfort. Reports that she is feeling well except for long history of constipation. Patient reports that she has tried multiple different chbx-tjs-xvqgjvk medications without much results. Patient reports that she is drinking plenty fluids. Patient states that she always been constipated even before the surgery. Patient denies any dyspepsia, dysphagia or odynophagia. Denies any melena, hematochezia, unintentional weight loss or ribbon like stools. Patient denies any other GI concerning symptoms. [facility] Medical History (Updated 06/30/23 @ 12:25 by ADITI Thompson-ZBIGNIEW) Renal calculi Back pain Migraine Hirsutism Lesion of cervix Dyspareunia, female Abnormal uterine bleeding (AUB) Dysmenorrhea Migraine with aura Vitamin D deficiency Female hirsutism Obesity (BMI 30-39.9) Smoker Gallstone Surgical History (Updated 06/30/23 @ 12:25 by ADITI Thompson-ZBIGNIEW) RUQ abdominal pain History of liver biopsy (06/06/23) Hx laparoscopic cholecystectomy (06/06/23) Hx of lithotripsy Hx of cystoscopy History of removal of calculus of renal pelvis through percutaneous nephrostomy Family History Mother Mental health disorder Depressed Social History Housing: Apartment Alcohol intake: never Comment: COUNTS CORRECT Patient Tobacco Use Status: Current everyday Tobacco user Tobacco use type: Cigarette Cigarettes Per Day: 6 e-Cigarette/Vaping Use: Never Used Second Hand Smoke Exposure: Yes service: No Current occupational status: unemployed Sexual orientation: Straight/Heterosexual Gender identity: Female Cognitive needs: No Hearing needs: No Vision needs: No Review of Systems Const Denies weight gain and Denies weight loss ENT Reports no additional complaints, Denies dysphagia and Denies odynophagia Card Reports no additional complaints Resp Reports no additional complaints GI Denies abdominal pain, Denies belching, Denies melena, Denies bloating, Reports constipation, Denies dysphagia, Denies excessive flatus, Denies dyspepsia, Denies heartburn, Denies diarrhea, Denies loose stools, Denies nausea, Denies odynophagia and Denies vomiting Reports no additional complaints Musc Reports no additional complaints Neuro Reports no additional complaints Psych Reports no additional complaints Endo Reports no additional complaints Physical Exam Vital Signs: Last Vital Signs Pulse 91 06/30/23 10:09 BP 136/78 06/30/23 10:09 BMI result Body Mass Index 35.4 Const General: healthy appearing and no acute distress Nutritional Appearance: obese Orientation/consciousness: patient oriented x3 Resp Effort & Inspection: normal respiratory effort, able to speak in complete sentences, no tracheal deviation and symmetric chest movement Auscultation: clear to auscultation bilaterally Cardio Rate: regular rate GI Inspection: Yes normal to inspection, No distended and Yes obesity Palpation (GI): Soft to palpation, not firm, nontender and No hepatosplenomegaly present Auscultation: normal bowel sounds General: Yes no CVA tenderness Back/Spine/Pelvis Back: no CVA tenderness Skin General skin exam: elasticity normal, turgor normal and dry skin Neuro General: patient oriented x3 Psych Appearance: grossly normal Mental Status: mental status grossly normal Assessment & Plan Assessment & Plan (1) Status post laparoscopic cholecystectomy: Code(s): Z90.49 - Acquired absence of other specified parts of digestive tract Category: Surgical (2) LUQ pain: Code(s): R10.12 - Left upper quadrant pain Category: Medical (3) Constipation: Code(s): K59.00 - Constipation, unspecified Category: Medical Qualifiers: Constipation type: chronic idiopathic constipation Qualified Code(s): K59.04 - Chronic idiopathic constipation Plan Patient was encouraged to increase fluid intake and activity to promote better bowel motility. Will start her on Linzess. Patient will call me in couple weeks if she will continue to be constipated we can increase the dose. Left upper quadrant pain most likely related to constipation and gas trapping. Patient does report that the pain goes away after bowel movement. I will see her in 6 weeks, sooner on as needed basis. Patient is agreeable to this plan and verbalizes understanding of instructions. She was given the opportunity to ask questions and all questions answered. Thank you for allowing me to participate in her care Medications: New linaclotide (Linzess) 145 mcg PO DAILY 30 caps 2RF
[2023-06-30 10:09] VITALS: BP 136/78; PULSE 91; BMI 35.4
== END 2023-06-30 10:44 | disposition home or self-care (01) ==
LOC: HO.HGI 10:06
PROVIDERS: PCP Internal Medicine; Visit Provider Nurse Practitioner Family
DX: Z90.49 Acquired absence of other specified parts of digestive tract (principal); R10.12 Left upper quadrant pain; K59.04 Chronic idiopathic constipation
CPT/HCPCS: 99203

== ENCOUNTER → 2023-06-30 10:06 | Outpatient (BNVA) | payer OTHER, SELFPAY | PROVIDERS: PCP Internal Medicine; Visit Provider Nurse Practitioner Family | DX: K59.00 Constipation, unspecified (principal); R10.12 Left upper quadrant pain; Z90.49 Acquired absence of other specified parts of digestive tract | CPT/HCPCS: 99202 ==

== ENCOUNTER 2024-04-13 15:36 | Outpatient (AMB) | payer OTHER, SELFPAY ==
--- NOTE | 2024-04-13 15:52 | A.OFFVIS_ITS ---
Intake Visit Reasons: Pain on left side blood in urine Intake Note: Patient presents today c/o pain in left side that elevates down to lower abdomen Urology Medications: none Blood Thinner: None Animal Science Instructor Required: No Accompanied by: Self / Same As Patient Allergies sulfamethoxazole [From Bactrim] Allergy (Unknown, Verified 04/13/24 16:15) Unknown trimethoprim [From Bactrim] Allergy (Unknown, Verified 04/13/24 16:15) Unknown HPI Comments Details: Sara is a very plesant 44 year old female patient of Dr. Gu. She has a past medical history of abnormal uterine bleeding migraine with aura, vitamin-D deficiency, obesity, smoker, and hirsutism. She presents to the office today for follow-up of her nephrolithiasis. In discussion with the patient today she reports noting over the last 1-2 weeks ongoing left-sided flank pain associated with dark-colored urine. Of note, patient was last seen over a year ago at which time recommendations were made for left-sided ESWL as patient was noted to have a 7 mm nonobstructing left renal pole calculus. We discussed at length potential causes of left-sided flank pain as well as dark-colored urine. In office urinalysis results reviewed with the patient today. She otherwise denies any bothersome urinary issues. She denies urinary urgency, urinary frequency, incontinence, nocturia, hematuria, dysuria, foul smelling urine, changes to urinary stream, fever, and or chills. She has a history of mixed calcium stone with high portion of carbonate apatite. When asked she reports to be drinking plenty of water daily and is compliant with vitamin B6 daily. Discussed near future further metabolic workup. All questions were answered. She otherwise offers no issues or concerns at this time Nephrolithiasis Longstanding Prior procedures October 2021 - ER visit with right-sided flank pain Imaging - 10/29 4 mm right proximal ureteric stone, 12 mm left lower pole stone - 01/29 renal ultrasound multiple left stones Intervention - 02/28 Left USR Stone composition - 02/28 mixed calcium oxalate monohydrate 35%, carbonate apatite 35% PFSH Medical History Renal calculi Back pain Migraine Hirsutism Lesion of cervix Dyspareunia, female Abnormal uterine bleeding (AUB) Dysmenorrhea Migraine with aura Vitamin D deficiency Female hirsutism Obesity (BMI 30-39.9) Smoker Gallstone Surgical History RUQ abdominal pain History of liver biopsy (06/06/23) Hx laparoscopic cholecystectomy (06/06/23) Hx of lithotripsy Hx of cystoscopy History of removal of calculus of renal pelvis through percutaneous nephrostomy Family History Mother Mental health disorder Depressed Social History Housing: Apartment Alcohol intake: never Comment: COUNTS CORRECT Patient Tobacco Use Status: Current everyday Tobacco user Tobacco use type: Cigarette Cigarettes Per Day: 6 e-Cigarette/Vaping Use: Never Used Second Hand Smoke Exposure: Yes service: No Current occupational status: unemployed Sexual orientation: Straight/Heterosexual Gender identity: Female Cognitive needs: No Hearing needs: No Vision needs: No Review of Systems Const Reports as per HPI Eyes Reports no additional complaints ENT Reports no additional complaints Card Reports no additional complaints Resp Reports no additional complaints GI Reports no additional complaints Reports as per HPI Neuro Reports as per HPI Psych Reports no additional complaints Endo Reports as per HPI Physical Exam Const General: cooperative, healthy appearing, comfortable, no acute distress, well developed, alert and awake Orientation/consciousness: patient oriented x3 Limitations: no limitations HEENT Head: Yes normal to inspection, Yes normocephalic and Yes atraumatic Ears: hearing grossly normal bilaterally Eyes General: appearance normal, both eyes and all related structures Neck Neck: Yes normal visual inspection and Yes trachea midline Chest Chest palpation & inspection: normal inspection of the chest Resp Effort & Inspection: normal respiratory effort and able to speak in complete sentences Cardio Rate: regular rate GI Inspection: Yes normal to inspection General: Yes no CVA tenderness Back/Spine/Pelvis Back: no CVA tenderness Skin General skin exam: no rashes or lesions noted Neuro General: patient oriented x3 Extrem General: Yes normal to inspection Psych Appearance: grossly normal and well kempt Mental Status: mental status grossly normal Speech and movement: Normal speech and movement present and Clear speech present Affect: normal affect Attitude: cooperative Thought process: Normal thought process present Thought content: Normal thought content present Insight: Fair insight present (Psych) Judgement: Fair judgement present (Psych) Results AMB Urinalysis, Automated UA Leukoctes 15 Wiliam/uL Last Edit by Traackr on 04/13/24 16:17 UA Nitrite Last Edit by Traackr on 04/13/24 16:17 UA Urobilinogen 0.2 mg/dL Last Edit by Traackr on 04/13/24 16:17 UA Protein 30 mg/dL Last Edit by Traackr on 04/13/24 16:17 UA pH 6.0 Last Edit by Traackr on 04/13/24 16:17 UA Blood 200 Lc/uL Last Edit by Traackr on 04/13/24 16:17 UA Specific [place] 1.025 Last Edit by Traackr on 04/13/24 16:17 UA Ketone Last Edit by Traackr on 04/13/24 16:17 UA Bilirubin 0 mg/dL Last Edit by Traackr on 04/13/24 16:17 UA Glucose 0 mg/dL Last Edit by Traackr on 04/13/24 16:17 Results Reviewed Results Reviewed: Laboratory Last Values Urine pH (Auto) 6.0 04/13/24 16:16 Specific [place] (Auto) 1.025 04/13/24 16:16 Urine Protein (Auto) 30 mg/dL 04/13/24 16:16 Glucose (UA)(Auto) 0 mg/dL 04/13/24 16:16 Urine Blood (Auto) 200 Lc/uL 04/13/24 16:16 Urine Bilirubin (Auto) 0 mg/dL 04/13/24 16:16 Urine Urobilinogen (Auto) 0.2 mg/dL 04/13/24 16:16 Leukocyte Esterase (Auto) 15 Wiliam/uL 04/13/24 16:16 Assessment & Plan Assessment & Plan (1) Left flank pain: Code(s): R10.9 - Unspecified abdominal pain Category: Medical (2) Nephrolithiasis: Code(s): N20.0 - Calculus of kidney Category: Medical Plan In office urinalysis results reviewed the patient today; as noted above. Will obtain stat CT KUB for further assessment evaluation. We discussed at length potential causes of left-sided flank pain as well as dark-colored urine. We discussed importance of following up as planned. Discussed, educated, and stressed the importance of adequate hydration relation to nephrolithiasis as well as overall health and well-being. We discussed worsening symptoms seeking emergency room care. Prescription provided for tramadol as needed for pain as well as Flomax. Follow-up once imaging is completed; or sooner with any issues, concerns, and or questions. Orders: Orders AMB Urinalysis Automated Today Z13.9 - Encounter for screening, unspecified CT kidney stone Today N20.0 - Calculus of kidney, R10.9 - Unspecified abdominal pain Medications: New tamsulosin 0.4 mg PO BEDTIME 30 days 30 caps 1RF N40.1 - Benign prostatic hyperplasia with lower urinary tract symptoms, R35.1 - Nocturia tramadol 50 mg PO Q8H 5 days PRN 15 tabs 0RF pain tramadol 50 mg PO Q8H 5 days PRN 15 tabs 0RF pain tamsulosin 0.4 mg PO BEDTIME 30 days 30 caps 1RF Patient Instructions: The patient had an opportunity to ask questions regarding the treatment plan. All questions were answered. Physical exam, labs, and imaging were discussed and reviewed in detail. As well as risks, benefits, and discussion of treatment choices. No major barriers to understanding were identified. The patient expressed understanding and agreement with the above treatment plan. The patient was made aware they should contact our office by phone for worsening of their current condition, the appearance of new symptoms, or with any questions or concerns. Compliance is encouraged with any medications and follow up testing that is ordered. It is a privilege to be allowed the opportunity to participate in? your urological care.? Again, if you have any questions or concerns If you have any questions or concerns please do not hesitate to contact me. The office is [phone]. This note is constructed using voice recognition software. While every effort has been made to ensure accuracy supervisor general errors may have been included. Yours sincerely, Sofía Cobb, SPECIAL NEEDS TUTOR-BC Coding Level of Care Code Est Pt Level 4 (27394) Diagnoses Left flank pain R10.9 Nephrolithiasis N20.0
== END 2024-04-13 16:22 | disposition home or self-care (01) ==
PROVIDERS: PCP Internal Medicine; Visit Provider Nurse Practitioner Family
DX: R10.9 Unspecified abdominal pain (principal); N20.0 Calculus of kidney; Z13.9 Encounter for screening, unspecified
CPT/HCPCS: 99214

== ENCOUNTER → 2024-04-13 15:36 | Outpatient (BNVA) | payer OTHER, SELFPAY | PROVIDERS: PCP Internal Medicine; Visit Provider Nurse Practitioner Family | DX: R10.9 Unspecified abdominal pain (principal); N20.0 Calculus of kidney | CPT/HCPCS: 81003; 99212 ==

== ENCOUNTER 2024-04-20 12:44 | Outpatient (REF) | payer OTHER, SELFPAY | END 2024-04-20 12:45 | disposition home or self-care (01) | LOC: HO.CT 12:44 | PROVIDERS: PCP Internal Medicine; Visit Provider Nurse Practitioner Family | DX: R10.9 Unspecified abdominal pain (principal); N20.0 Calculus of kidney | CPT/HCPCS: 74176 ==

== ENCOUNTER → 2024-04-20 12:45 | Outpatient (BNV) | payer OTHER, SELFPAY | PROVIDERS: PCP Internal Medicine; Visit Provider Radiology Diagnostic Radiology | DX: R10.9 Unspecified abdominal pain (principal) | CPT/HCPCS: 74176 ==

== ENCOUNTER 2024-04-20 15:37 | Outpatient (AMB) | payer OTHER, SELFPAY ==
--- NOTE | 2024-04-20 15:38 | A.OFFVIS_ITS ---
Intake Visit Reasons: CT Follow up Intake Note: Patient presents today for tele visit follow up on: CT Scan Urology Medications: tamsulosin Blood Thinner: None Strip Machine Operator Required: No Accompanied by: Self / Same As Patient Allergies sulfamethoxazole [From Bactrim] Allergy (Unknown, Verified 04/20/24 15:39) Unknown trimethoprim [From Bactrim] Allergy (Unknown, Verified 04/20/24 15:39) Unknown HPI Comments Details: Sara is a very plesant 44 year old female patient of Dr. Gu. She has a past medical history of abnormal uterine bleeding migraine with aura, vitamin-D deficiency, obesity, smoker, and hirsutism. She is being followed up on today via video telehealth for her nephrolithiasis and ongoing left-sided flank pain. Of note, patient was seen last week at which time a stat CT KUB was ordered for further assessment evaluation. These results were communicated with the patient today. 05/04 right kidney is normal in appearance. No renal calculi no hydronephrosis. Left kidney demonstrates scarring in the upper pole. There is mild to moderate hydronephrosis with a 8 mm oval calculus in the renal pelvis which could be intermittently obstructing. In addition there are a group calculi in the area inferior pole, largest measuring 7 mm in diameter. These are nonobstructing. The ureters are nondilated. The bladder is unremarkable. She continues to report intermittent left-sided flank pain however feels symptoms have been manageable. We discussed further intervention to include ureteroscopy verses ESWL. Risks and benefits of these interventions were discussed. All questions were answered. She otherwise denies any bothersome urinary issues. She denies urinary urgency, urinary frequency, incontinence, nocturia, hematuria, dysuria, foul smelling urine, changes to urinary stream, fever, and or chills. She has a history of mixed calcium stone with high portion of carbonate apatite. When asked she reports to be drinking plenty of water daily and is compliant with vitamin B6 daily. Discussed near future further metabolic workup. All questions were answered. She otherwise offers no issues or concerns at this time Nephrolithiasis Longstanding Prior procedures October 2021 - ER visit with right-sided flank pain Imaging - 10/29 4 mm right proximal ureteric stone, 12 mm left lower pole stone - 01/29 renal ultrasound multiple left stones Intervention - 02/28 Left USR Stone composition - 02/28 mixed calcium oxalate monohydrate 35%, carbonate apatite 35% PFSH Medical History Renal calculi Back pain Migraine Hirsutism Lesion of cervix Dyspareunia, female Abnormal uterine bleeding (AUB) Dysmenorrhea Migraine with aura Vitamin D deficiency Female hirsutism Obesity (BMI 30-39.9) Smoker Gallstone Surgical History RUQ abdominal pain History of liver biopsy (06/06/23) Hx laparoscopic cholecystectomy (06/06/23) Hx of lithotripsy Hx of cystoscopy History of removal of calculus of renal pelvis through percutaneous nephrostomy Family History Mother Mental health disorder Depressed Social History Housing: Apartment Alcohol intake: never Comment: COUNTS CORRECT Patient Tobacco Use Status: Current everyday Tobacco user Tobacco use type: Cigarette Cigarettes Per Day: 6 e-Cigarette/Vaping Use: Never Used Second Hand Smoke Exposure: Yes service: No Current occupational status: unemployed Sexual orientation: Straight/Heterosexual Gender identity: Female Cognitive needs: No Hearing needs: No Vision needs: No Review of Systems Const All systems reviewed & are unremarkable except as noted in HPI and below Physical Exam Const General: cooperative, healthy appearing, comfortable, no acute distress, well developed, alert, awake and Physically active Limitations: no limitations Resp Effort & Inspection: normal respiratory effort and able to speak in complete sentences Psych Appearance: grossly normal and well kempt Mental Status: mental status grossly normal Speech and movement: Clear speech present Affect: normal affect Attitude: cooperative Thought process: Normal thought process present Thought content: Normal thought content present Insight: Fair insight present (Psych) Judgement: Fair judgement present (Psych) Telehealth Telehealth Telehealth Platform: [employer] Location of provider rendering services: practice address Location of patient: address on file Patient Identification confirmed using: Name, : Yes Telehealth method: video Patient verbally consented to treatment: Yes Patient verbally consented to billing insurance company: Yes Patient informed of any privacy concerns related to visit: Yes Minutes spent on Phone/Video with Pt.: 21 Results Reviewed Results Reviewed: Date of Service: 04/20/24 Procedure(s): CT kidney stone FINDINGS: LUNG BASES: The visualized lung bases are unremarkable. LIVER, GALLBLADDER, AND BILIARY TREE: The liver is normal in size, and attenuation. Grossly normal contour. No focal hepatic lesion or biliary ductal dilatation is present. Gallbladder is surgically absent. PANCREAS: Unremarkable. SPLEEN: Unremarkable. ADRENAL GLANDS: Unremarkable. KIDNEYS AND URETERS: Right kidney is normal in appearance. No calculi. No hydronephrosis. Left kidney demonstrates scarring in the upper pole. There is mild to moderate hydronephrosis, with an 8 x 8 x 7 mm oval calculus in the renal pelvis. Could be intermittently obstructing. In addition there are grouped calculi in the inferior pole, largest measuring 7 mm in diameter. These are nonobstructing. The ureters are nondilated. BLADDER: Unremarkable. GASTROINTESTINAL TRACT: The small and large bowel are unremarkable. The appendix is unremarkable. ABDOMINAL WALL: No significant hernia is appreciated. LYMPH NODES: Normal. VASCULAR: Unremarkable. PELVIC VISCERA: The uterus and adnexa are unremarkable. OSSEOUS STRUCTURES: No suspicious or blastic bone lesions. Mild degenerative disc changes L4-5 and L5-S1 with associated mild facet degeneration. Sclerosis surrounding the right greater than left SI joints, unchanged, possibly representing sacroiliitis versus asymmetric osteitis condensans. IMPRESSION: 1. Left kidney demonstrates [id number] hydronephrosis secondary to a plate by 7 mm calculus in the renal pelvis, possibly intermittently obstructing. There is left upper pole scarring as well as grouped nonobstructing calculi in the inferior pole. 2. Normal right kidney. 3. Ancillary findings as detailed. Assessment & Plan Assessment & Plan (1) Left flank pain: Code(s): R10.9 - Unspecified abdominal pain Category: Medical (2) Nephrolithiasis: Code(s): N20.0 - Calculus of kidney Category: Medical Plan: Plan Extracorporeal Shock Wave Lithotripsy We discussed the nature of the decision and reasonable alternatives for performing the above surgery. Interventions include chemical dissolution, ESWL, ureteroscopy with laser lithotripsy and stent placement, PCNL. ? Options such as medical therapy were discussed. The relative uncertainties and benefits related to each alternate procedure were adequately discussed. General surgical risks including, but not limited to, pain, bleeding, infection, myocardial infarction, pulmonary embolus, deep vein thrombosis and cerebrovascular accident which may result in further hospitalization were discussed.? Full disclosure of the procedure as well as all major risks, benefits and complications were discussed including but not limited to risks of bleeding, injury to the kidney with hematoma or ronan-hematoma, failure to fragments stone, potential for ureteric obstruction from stone passage and need for secondary procedures.? There is a small long-term risk of hypertension and a question [place]ingo of diabetes.? Success rate of fragmentation and passage is approximately 70- 75%.? This is compared to the risks and benefits for ureteroscopy which has a higher success rate but is a more invasive procedure. The success rate of the procedure was discussed. Success of the procedure in the short-term does not necessarily guarantee that long-term success will be maintained. Suitable follow up will need to be maintained. The patient showed understanding of the discussion as well as the typical recovery time, and the outpatient nature of this procedure. Opportunity was given for questions. Repeat-back protocol used to confirm understanding. They wish to proceed with left ESWL Plan Recent CT KUB results reviewed with the patient today; as noted above. We discussed further treatment options of nephrolithiasis to include ureteroscopy verses ESWL; risks and benefits of these interventions were discussed. All questions were answered. Discussed, educated, and stressed the importance of adequate hydration relation to nephrolithiasis as well as overall health and well-being. We discussed worsening symptoms. Will schedule for left-sided ESWL. Follow-up per doctor's orders; or sooner with any issues, concerns, and or questions. Patient Instructions: The patient had an opportunity to ask questions regarding the treatment plan. All questions were answered. Physical exam, labs, and imaging were discussed and reviewed in detail. As well as risks, benefits, and discussion of treatment choices. No major barriers to understanding were identified. The patient expressed understanding and agreement with the above treatment plan. The patient was made aware they should contact our office by phone for worsening of their current condition, the appearance of new symptoms, or with any questions or concerns. Compliance is encouraged with any medications and follow up testing that is ordered. It is a privilege to be allowed the opportunity to participate in? your urological care.? Again, if you have any questions or concerns If you have any questions or concerns please do not hesitate to contact me. The office is [phone]. This note is constructed using voice recognition software. While every effort has been made to ensure accuracy electric tool repairer errors may have been included. Yours sincerely, CINDI Lopez Coding Level of Care Code Tele Est Pt Level 4 (80812) Diagnoses Left flank pain R10.9 Nephrolithiasis N20.0
== END 2024-04-20 16:41 | disposition home or self-care (01) ==
LOC: HO.HUSH 15:37
PROVIDERS: PCP Internal Medicine; Visit Provider Nurse Practitioner Family
DX: R10.9 Unspecified abdominal pain (principal); N20.0 Calculus of kidney
CPT/HCPCS: 99214

== ENCOUNTER 2024-06-03 13:29 | Outpatient (REF) | payer OTHER, SELFPAY ==
--- NOTE | ~2024-06-03 | US_ITS ---
EXAMINATION: US KIDNEY BILATERAL HISTORY: N20.0 - Calculus of kidney TECHNIQUE: Real-time grayscale ultrasound imaging of the kidneys was performed and images were reviewed. COMPARISON: Correlation is made with an right upper quadrant ultrasound dated 05/21/[address] of the abdomen and pelvis without contrast dated 04/20/2024. FINDINGS: Right kidney: The right kidney measures 13.3 x 4.4 x 5.8 cm. Renal parenchymal echotexture and thickness are normal. There are no masses. There is no hydronephrosis or renal calculi. Left Kidney: The left kidney measures 11.4 x 6.0 x 7.0 cm. Renal parenchymal echotexture and thickness are normal. There are no masses. There is a nonobstructing calculus at the lower pole measuring 7 x 7 x 8 mm. There is moderate hydronephrosis. An 11 x 7 x 8 mm obstructing calculus is noted at the UPJ. US/US renal BI IMPRESSION: Moderate left hydronephrosis secondary to an 11 x 7 x 8 mm calculus at the UPJ. An additional 7 x 7 x 8 mm nonobstructing calculus is noted at the lower pole. Electronically signed by: Sammy Christensen MD 06/03/2024 02:12 PM EDT
== END 2024-06-03 13:30 | disposition home or self-care (01) ==
LOC: HO.HMGCX 13:29
PROVIDERS: PCP Internal Medicine; Visit Provider Nurse Practitioner Family
DX: N20.0 Calculus of kidney (principal)
CPT/HCPCS: 76775

== ENCOUNTER → 2024-06-03 13:46 | Outpatient (BNV) | payer OTHER, SELFPAY | PROVIDERS: PCP Internal Medicine; Visit Provider Radiology Diagnostic Radiology | DX: N20.0 Calculus of kidney (principal) | CPT/HCPCS: 76775 ==

== ENCOUNTER 2024-06-15 08:44 | Outpatient (REF) | payer OTHER, SELFPAY | END 2024-06-15 08:45 | disposition home or self-care (01) | LOC: HO.MAMMO 08:44 | PROVIDERS: PCP Internal Medicine; Visit Provider Internal Medicine | DX: Z12.31 Encounter for screening mammogram for malignant neoplasm of breast (principal) | CPT/HCPCS: 77063; 77067 ==

== ENCOUNTER → 2024-06-15 09:30 | Outpatient (BNV) | payer OTHER, SELFPAY | PROVIDERS: PCP Internal Medicine; Visit Provider Internal Medicine | DX: Z12.31 Encounter for screening mammogram for malignant neoplasm of breast (principal) | CPT/HCPCS: 77063; 77067 ==

== ENCOUNTER 2024-06-23 08:19 | Day surgery (SDC) | payer OTHER, SELFPAY ==
--- NOTE | ~2024-06-23 | XR_ITS ---
CLINICAL HISTORY: left nephrolithiasis 1 view abdomen Comparison: 01/28/2023 Findings: Surgical clips projecting over the right abdomen. Increased number of calcifications (at least 5 calcifications are seen versus 1 or 2 on the prior study) measuring up to 11 mm projecting over the left renal bed and left paravertebral region (L2 level) likely due to urinary tract/renal stones. Nonobstructive bowel gas pattern. Mild colonic stool. IMPRESSION: Increased number of calcifications (at least 5 calcifications are seen versus 1 or 2 on the prior study) measuring up to 11 mm projecting over the left renal bed and left paravertebral region (L2 level) likely due to urinary tract/renal stones. This document has been electronically signed by: Nikkie Mckee MD on 06/24/2024 11:58:22
--- NOTE | 2024-06-23 07:39 | MHC.SHP ---
Pre-Procedural Eval Section A - 24 Hr Update-Section A only Date of Service: 06/23/24 The patient is an INPATIENT: No Changes since office visit: No Cold of Flu in the past 2 weeks, No New Medical Problems, No Changes in Medication and No Patient answered all questions The patient has been examined within 24 hours of the surgical procedure. The History & Physical has been completed within 30 days and I have reviewed it.: Yes Section B - Complete if H&P > 30 days Chief Complaint: Calculus of kidney Details of Present Illness: left 11mm UPJ/proximal ureter Relevant Social History: None Present Medications: see Short Stay Collaborative assessment Medical History: No relevant PMH History of Previous Operations: No relevant previous surgery Allergies: Allergies Allergy/AdvReac Type Severity Reaction Status Date / Time sulfamethoxazole Allergy Unknown Unknown Verified 04/20/24 15:39 [From Bactrim] trimethoprim [From Bactrim] Allergy Unknown Unknown Verified 04/20/24 15:39 Plan I have reviewed the history and physical and performed a pertinent physical examination on my patient. No changes have occurred unless specified. Time Spent With Patient Time: Total time managing care of this patient today ____ minutes.
[2024-06-23 09:35] VITALS: BP 151/94; PULSE 79; RESP 14; TEMP 36.9; O2SAT 97; BMI 38.3
[2024-06-23 09:42] LABS: UPreg QC Valid YES; Urine Pregnancy NEGATIVE (NEGATIVE)
--- NOTE | 2024-06-23 09:43 | HO.ANESPROP2 ---
HPI - Anesthesia Eval Consult details Narrative: lithotripsy PMFSH Active Problems Active Problems: All Active Problems Status post laparoscopic cholecystectomy (Acute) Biliary colic (Acute) Left flank pain (Acute) Potential exposure to STD (Acute) Foreign body in foot, left (Acute) Foot pain, left (Acute) Breast cancer screening by mammogram (Acute) Low back pain (Acute) Annual physical exam (Acute) Low vitamin D level (Acute) Impaired fasting glucose (Acute) Right lumbar radiculopathy (Acute) Nephrolithiasis (Acute) Numbness of toes (Acute) Screening for hypothyroidism (Acute) Screening for hyperlipidemia (Acute) LUQ pain (Acute) Constipation (Acute) Migraine (Acute) Hirsutism (Acute) Lesion of cervix (Acute) Dyspareunia, female (Acute) Abnormal uterine bleeding (AUB) (Acute) Dysmenorrhea (Acute) Female hirsutism (Acute) Vitamin D deficiency (Acute) Obesity (BMI 30-39.9) (Acute) Smoker (Acute) Past Medical History Medical History Renal calculi Back pain Migraine Hirsutism Lesion of cervix Dyspareunia, female Abnormal uterine bleeding (AUB) Dysmenorrhea Migraine with aura Vitamin D deficiency Female hirsutism Obesity (BMI 30-39.9) Smoker Gallstone Family History Family History Mother Mental health disorder Depressed Family history of problems with anesthesia: No Surgical History Surgical History RUQ abdominal pain History of liver biopsy (06/06/23) Hx laparoscopic cholecystectomy (06/06/23) Hx of lithotripsy Hx of cystoscopy History of removal of calculus of renal pelvis through percutaneous nephrostomy History of Problems with Anesthesia: No Social History Social History Housing: Apartment Alcohol intake: never Comment: COUNTS CORRECT Patient Tobacco Use Status: Current everyday Tobacco user Tobacco use type: Cigarette Cigarettes Per Day: 6 e-Cigarette/Vaping Use: Never Used Second Hand Smoke Exposure: Yes Advance Directives: No Advance Directives Information Provided: Yes service: No Current occupational status: unemployed Sexual orientation: Straight/Heterosexual Gender identity: Female Cognitive needs: No Hearing needs: No Vision needs: No Meds Allergies Allergy/AdvReac Type Severity Reaction Status Date / Time sulfamethoxazole Allergy Unknown Unknown Verified 04/20/24 15:39 [From Bactrim] trimethoprim [From Bactrim] Allergy Unknown Unknown Verified 04/20/24 15:39 Home Medications ?Medication ?Instructions ?Recorded ?Confirmed ?Last Taken ?Type yvpidvj-dwdbwateenqtp-tjnfdyqv 250 2 tab PO Q6H PRN Migraine Headache 06/06/23 06/06/23 Unknown History mg-250 mg-65 mg tablet (Excedrin Migraine) linaclotide 145 mcg capsule mcg PO DAILY 04/20/24 Unknown History (Linzess) Exam Pertinent Lab Results Pertinent Lab Results: Laboratory Tests 06/23/24 09:30 Urine Test NEGATIVE Airway Mallampati Class: II TM Dist: >3cm Neck ROM: Full Heart: rrr Lungs: cta Assessment and Plan Assessment Anesthesia Assessment: Anesthesia Plan Discussed and Chart Reviewed Final Anesthetic Review Family History of Problems with Anesthesia: No History of Problems with Anesthesia: No NPO: Yes ASA Class: II Final Preanesthetic Review: No Changes in Pt Med Stat, Meds/Allgs Chart Reviewed, Consent Obtained/Reviewed and Anes Risks/Benef Reviewed Patient Risk: Intermediate Procedure Risk: Low Anesthetic Plan Anesthetic Plan: MAC: Disposition: Standard PACU
[2024-06-23] MEDS: Lactated Ringers 1,000 ML 999 ML IV (09:52)
--- NOTE | 2024-06-23 10:21 | P.OP_ITS ---
Operative Note Operative Note Date of Service: 06/23/24 Narrative: PreOperative Diagnosis: left UPJ Renal stones Post Operative Diagnosis: left UPJ Renal stones Procedure: Left UPJ ESWL Surgeon: Dr Anibal Allan Anesthesia: mac/sedation Indications for procedure: The patient understands ESWL may be a staged procedure and subsequent inte rvention may be required based on imaging after ESWL. Quoted stone clearance rates for a solitary procedure are in the 70-80% range based primarily on stone location. They also understand there is a risk of bleeding to the kidney, infection, damage to adjacent organs, and stone migration following the procedure. - Imaging 11mm left UPJ stone with hydro on US Procedure optimization has been performed with IV acetaminophen given in the holding area and 1 L of lactated Ringer's to be given in order to optimize the fluid-stone interface. 20 mg of IV Lasix will be given in the last 5 minutes of the procedure to optimize stone clearance. Procedure: After informed consent was verified the patient was brought to the operating room and placed in a supine position. Anesthesia was performed per protocol. Safety pause time-out was performed. Imaging was displayed in the room and laterality confirmed. ESWL was performed. The 1st 500 shocks were performed at 60 hertz. These were performed with increasing power. Once maximum power was reached the rate was increased to 180 hertz. A total of 2500 shocks were given. Targeted imaging with ultrasound/fluoroscopy showed stone smudging suggestive of disintegration. The patient tolerated the procedure well and was transferred to the recovery area upon completion. Post procedure imaging will be organized. There was no evidence for flank discoloration.
[2024-06-23 10:50] VITALS: BP 115/65; PULSE 74; RESP 16; TEMP 36.2; O2SAT 95
[2024-06-23] MEDS: Ketorolac Tromethamine 15 MG/ML VIAL IVPUSH (10:51)
[2024-06-23 11:05] VITALS: BP 124/64; PULSE 63; RESP 18; TEMP 36.4; O2SAT 96
== END 2024-06-23 11:51 | disposition home or self-care (01) ==
PROVIDERS: Anesthesiology; PCP Internal Medicine; Visit Provider Urology
PROC: (CPT 50590; principal; 2024-06-23 10:50)
DX: N20.0 Calculus of kidney (principal); Z87.442 Personal history of urinary calculi; R10.9 Unspecified abdominal pain; N94.10 Unspecified dyspareunia; N93.9 Abnormal uterine and vaginal bleeding, unspecified; L68.0 Hirsutism; E55.9 Vitamin D deficiency, unspecified; E66.9 Obesity, unspecified; G43.109 Migraine with aura, not intractable, without status migrainosus; Z79.899 Other long term (current) drug therapy; Z88.2 Allergy status to sulfonamides; Z98.890 Other specified postprocedural states; F17.210 Nicotine dependence, cigarettes, uncomplicated
CPT/HCPCS: 50590; 74018; 81025; J0131; J1885; J1938; J1940; J2003; J2704; J3010

== ENCOUNTER → 2024-06-23 08:19 | Outpatient (BNV) | payer OTHER, SELFPAY | PROVIDERS: PCP Internal Medicine; Visit Provider Urology | DX: N20.0 Calculus of kidney (principal) | CPT/HCPCS: 50590 ==

== ENCOUNTER → 2024-06-23 08:23 | Outpatient (BNV) | payer OTHER, SELFPAY | PROVIDERS: PCP Internal Medicine; Visit Provider Radiology Diagnostic Radiology | DX: N20.0 Calculus of kidney (principal) | CPT/HCPCS: 74018 ==

== ENCOUNTER 2025-01-14 08:19 | Outpatient (AMB) | payer OTHER, SELFPAY ==
--- NOTE | 2025-01-14 08:18 | A.OFFVIS_ITS ---
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 38.6 Allergies sulfamethoxazole (From Bactrim) Allergy (Unknown, Verified 01/14/25 08:18) Unknown trimethoprim (From Bactrim) Allergy (Unknown, Verified 01/14/25 08:18) Unknown Medication List - Last Reconciled 01/14/25 by Aristeo Myrick MD amlodipine 5 mg PO DAILY cholecalciferol (vitamin D3) 25 mcg PO DAILY linaclotide (Linzess) mcg PO DAILY lisinopril 5 mg PO DAILY HPI HPI 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 38.6: Details: Start time: 8.15am, End time: 9.05am ?I spent 45 minutes speaking with the patient on the phone plus an additional 5 minutes reviewing and updating records for a total of 50 minutes HPI Comments Details: Previous weight loss efforts: self diets and exercise Wakes up: 5am, Sleeps: 10pm Breakfast: skips Lunch: skips Dinner: 6pm (pizza, maltese, or rice with fried chicken) Snacks: 4-5 snacks before dinner (Special K bar, candy/cakes), several small snacks after dinner (ice cream, popsicles) Exercise: has home treadmill (tracks calories and inclines) Beverages: Coffee (24oz of Mocca premade from [employer]), Tea: none, Soda: Regular Coke (3 cans/d), Juice: none, ETOH: none PFSH Medical History (Updated 01/14/25 @ 08:54 by Aristeo Myrick MD) Hypertension BMI 38.0-38.9,adult Obesity Renal calculi Back pain Migraine Hirsutism Lesion of cervix Dyspareunia, female Abnormal uterine bleeding (AUB) Dysmenorrhea Migraine with aura Vitamin D deficiency Female hirsutism Obesity (BMI 30-39.9) Smoker Gallstone Surgical History RUQ abdominal pain History of liver biopsy (06/06/23) Hx laparoscopic cholecystectomy (06/06/23) Hx of lithotripsy Hx of cystoscopy History of removal of calculus of renal pelvis through percutaneous nephrostomy Family History Mother Mental health disorder Depressed Social History Housing: Apartment Are you a primary weekend caregiver to a significant other at home: No Do you presently have visiting nurse or other home services: No Alcohol intake: never Comment: COUNTS CORRECT Patient Tobacco Use Status: Current everyday Tobacco user Tobacco use type: Cigarette Cigarettes Per Day: 5 e-Cigarette/Vaping Use: Never Used Second Hand Smoke Exposure: Yes service: No Current occupational status: unemployed Sexual orientation: Straight/Heterosexual Gender identity: Female Cognitive needs: No Hearing needs: No Vision needs: No Telehealth Telehealth Telehealth Platform: Telephone Location of provider rendering services: practice address Location of patient: address on file Patient Identification confirmed using: Name, : Yes Telehealth method: voice only Patient verbally consented to treatment: Yes Patient verbally consented to billing insurance company: Yes Patient informed of any privacy concerns related to visit: Yes Minutes spent on Phone/Video with Pt.: 50 Assessment & Plan Assessment & Plan (1) Obesity: Code(s): E66.9 - Obesity, unspecified Category: Medical Qualifiers: Obesity type: due to excess calories Obesity classification: adult class 2 (BMI 35 - 39.9) Serious obesity comorbidity presence: with serious comorbidity Body mass index: BMI 38.0-38.9 Qualified Code(s): E66.01 - Morbid (severe) obesity due to excess calories; Z68.38 - Body mass index [BMI] 38.0- 38.9, adult Plan: 1.? Plan for lap sleeve gastrectomy. If diaphragmatic or ventral hernias are present at time of surgery, these will be repaired laparoscopically as well. I emphasized the importance of close follow-up, adherence to instructions and good communication. The surgery does not replace the need to change your lifestlyle which is the cause of the obesity problem. The surgery provides the motivation to try again to change your lifestyle, it reduces the appetite and make the transition to a better lifestyle easier and doubles the amount of weight you would lose compared to doing the lifestyle change without the surgery. You will need to be on a liquid diet with protein shakes for 2 weeks before surgery to maximize weight loss and boost your nutritional status to joe marylu better from surgery and also for the first two weeks after surgery to let the stomach heal before we introduce other foods. After the first 2 weeks we will introduce protein bars and soft foods like scrambled eggs, cottage cheese and yogurt and after the 6th week will introduce meat, fish and cooked vegetables in small amounts. Over time you should be able to eat everything in small amounts. Side effects like nausea, vomiting, heartburn or abdominal pain are not common in the practice unless you are not following in the practice. This operation requires lifetime commitment to following in our practice and communication with me. You will much less weight and experience side effects if you don?t communicate or not following in the practice. Complications are rare and in our practice is about 1/10 of the national average. However, you can develop bleeding that may require transfusion (hasn?t happened for year in the practice), you may from complications (we did not have any deaths in the practice) and infections. Infections are usually a result of breakdown in communication or not understanding or following directions correctly. They are difficult to treat, they can happen during the first 6 weeks, they may require to be in the hospital for weeks or even months, not being able to eat by mouth and you may have drains and surgeries to try and correct the issue. Other risks and complications include possible conversion to an open procedure, leaks, small bowel obstruction, blood clots, cardiac, or pulmonary complications, as terminal makeup operator complications such as ulcers, insufficient weight loss and vitamin deficiencies. 2. Nutritional counseling. Start with one CELEBRATE REBUILD protein (buy online with the link I gave you) shakes (HALF scoop in 8oz low fat unsweetened almond milk each) at 6am-8am, 1 protein bar (CELEBRATE protein bars, buy at hospital's gift shop, buy online with the link I gave you) ) at 9am-11am, another CELEBRATE REBUILD protein shakes (HALF scoop in 8oz low fat unsweetened almond milk each) at 12pm-2pm, another Celebrate protein bar at 3pm-5pm, dinner at 6pm (8 forks of protein and 8 forks of salad/vegetables) AND another Celebrate protein bar after dinner at 8pm-10pm. So you do 2 protein shakes, 3 protein bars and one meal per day. Meal to include lean meat (beef, fish, pork, turkey, chicken), or bengali yogurt, or egg whites, or beans with a salad with olive oil and fruits (berries, pears, apples, kiwi). Avoid salt, breads, potatoes, rice, pasta, desserts. 3. Each shake would be drunk slowly, like coffee in a period of 2 hours. 4. Cut each bar in 4 pieces and eat each piece in 30min ?to make each bar last 2 hours. 5. I emphasized the importance of measuring accurately the food portion and measure it when serving the food in plate 6. The meal portions include 8 full-size forks of meat and 8 full-size forks of salad. You always eat the meat portion but you can replace up to 4 forks for salad/vegetables with rice, potatoes or pasta, or a fruit ?if you like. The less you do it the better weight loss will be. 7. One full-size fork is what it can be scooped on the fork without falling aside and not what can be bit with the fork. Use regular forks like those you find in a typical restaurant. 8.? Please buy the body composition scale we discussed and send me weight measurements as soon as possible and then once a week. Always include your diet and exercise plan. 9. Start treadmill with an incline of 2.0 and speed of 3.0. Increase incline by 1 every 3 min to a max incline of 8.0, stay 3min at 8.0 and then return to 2.0 and repeat same steps until calorie goal is met. Goal is to burn 2000 calories per week on exercise, which means either 300 calories daily. 10.?It is important of avoiding and for at least 18 months postoperatively and has been discussed at the infosession. 11. Goal is to lose at least 1.5-2lbs per week 12. Goal to lose 10% of your weight before surgery, which is about 20lbs. Ultimate weight goal: 180lbs before surgery 13. Please follow the diet plan exactly without any change. If you don't like something about the plan or you feel hungry you need to communicate with me so I can help you revise the plan. You should not change the plan yourself 14. To be scheduled for EGD to assess the stomach's anatomy. The possibility of biopsies was discussed. Patient needs to avoid use of NSAIDs and aspirin for 1 week prior to EGD. You must be on liquids only the day before your endoscopy. Risks of perforation and bleeding was discussed with the patient. This will be an outpatient procedure with IV sedation. Orders: Orders Insulin Today E66.9 - Obesity, unspecified, I10 - Essential (primary) hypertension, N20.0 - Calculus of kidney, Z68.38 - Body mass index [BMI] 38.0- 38.9, adult Lipid Panel Today E66.9 - Obesity, unspecified, I10 - Essential (primary) hypertension, N20.0 - Calculus of kidney, Z68.38 - Body mass index [BMI] 38.0- 38.9, adult Comprehensive Met. Panel Today E66.9 - Obesity, unspecified, I10 - Essential (primary) hypertension, N20.0 - Calculus of kidney, Z68.38 - Body mass index [BMI] 38.0-38.9, adult Zinc Today E66.9 - Obesity, unspecified, I10 - Essential (primary) hypertension, N20.0 - Calculus of kidney, Z68.38 - Body mass index [BMI] 38.0- 38.9, adult Vitamin A Today E66.9 - Obesity, unspecified, I10 - Essential (primary) hypertension, N20.0 - Calculus of kidney, Z68.38 - Body mass index [BMI] 38.0- 38.9, adult Ferritin Today E66.9 - Obesity, unspecified, I10 - Essential (primary) hypertension, N20.0 - Calculus of kidney, Z68.38 - Body mass index [BMI] 38.0- 38.9, adult XR chest 2V Today E66.9 - Obesity, unspecified, I10 - Essential (primary) hypertension, N20.0 - Calculus of kidney, Z68.38 - Body mass index [BMI] 38.0- 38.9, adult Hemoglobin A1c Today E66.9 - Obesity, unspecified, I10 - Essential (primary) hypertension, N20.0 - Calculus of kidney, Z68.38 - Body mass index [BMI] 38.0- 38.9, adult H Pylori Breath Test Today E66.9 - Obesity, unspecified, I10 - Essential (primary) hypertension, N20.0 - Calculus of kidney, Z68.38 - Body mass index [BMI] 38.0-38.9, adult Complete Blood Count Auto Diff Today E66.9 - Obesity, unspecified, I10 - Essential (primary) hypertension, N20.0 - Calculus of kidney, Z68.38 - Body mass index [BMI] 38.0-38.9, adult IRON PROFILE Today E66.9 - Obesity, unspecified, I10 - Essential (primary) hypertension, N20.0 - Calculus of kidney, Z68.38 - Body mass index [BMI] 38.0- 38.9, adult Vitamin B12 and Folate Today E66.9 - Obesity, unspecified, I10 - Essential (primary) hypertension, N20.0 - Calculus of kidney, Z68.38 - Body mass index [BMI] 38.0-38.9, adult C Reactive Protein Today E66.9 - Obesity, unspecified, I10 - Essential (primar y) hypertension, N20.0 - Calculus of kidney, Z68.38 - Body mass index [BMI] 38.0-38.9, adult Vitamin B1 Today E66.9 - Obesity, unspecified, I10 - Essential (primary) hypertension, N20.0 - Calculus of kidney, Z68.38 - Body mass index [BMI] 38.0- 38.9, adult TSH reflex Free T4 Today E66.9 - Obesity, unspecified, I10 - Essential (primary) hypertension, N20.0 - Calculus of kidney, Z68.38 - Body mass index [BMI] 38.0-38.9, adult Vitamin D 25-OH Total Today E66.9 - Obesity, unspecified, I10 - Essential (primary) hypertension, N20.0 - Calculus of kidney, Z68.38 - Body mass index [BMI] 38.0-38.9, adult US abdomen comp w elastography Today E66.9 - Obesity, unspecified, I10 - Essential (primary) hypertension, N20.0 - Calculus of kidney, Z68.38 - Body mass index [BMI] 38.0-38.9, adult ECG 12 lead EKG Today E66.9 - Obesity, unspecified, I10 - Essential (primary) hypertension, N20.0 - Calculus of kidney, Z68.38 - Body mass index [BMI] 38.0- 38.9, adult FL upper GI w air Today E66.9 - Obesity, unspecified, I10 - Essential (primary) hypertension, N20.0 - Calculus of kidney, Z68.38 - Body mass index [BMI] 38.0- 38.9, adult Referrals Behavioral Health Referral E66.9 - Obesity, unspecified, I10 - Essential (primary) hypertension, N20.0 - Calculus of kidney, Z68.38 - Body mass index [BMI] 38.0-38.9, adult Nutrition/Dietitian Referral E66.9 - Obesity, unspecified, I10 - Essential (primary) hypertension, N20.0 - Calculus of kidney, Z68.38 - Body mass index [BMI] 38.0-38.9, adult
[2025-01-14 08:30] VITALS: BMI 38.3
== END 2025-01-14 09:06 | disposition home or self-care (01) ==
LOC: HO.HBS 08:19
PROVIDERS: Visit Provider Surgery
DX: E66.01 Morbid (severe) obesity due to excess calories (principal); Z68.38 Body mass index [BMI] 38.0-38.9, adult
CPT/HCPCS: 99204

== ENCOUNTER 2025-01-17 07:59 | Outpatient (REF) | payer OTHER, SELFPAY ==
--- NOTE | ~2025-01-17 | XR_ITS ---
EXAMINATION: XR CHEST CLINICAL INFORMATION: E66.9 - Obesity, unspecified COMPARISON: None available. TECHNIQUE: PA and lateral views. FINDINGS: No consolidation, pleural effusion or pneumothorax. Cardiomediastinal silhouette size is normal. No hyperinflation. Multilevel spondylosis, axial skeleton. XR/XR chest 2V IMPRESSION: No acute airspace disease. Spondylosis, thoracolumbar spine. Electronically signed by: Tony Obregon MD 01/17/2025 09:10 AM KEVIN
--- NOTE | 2025-01-17 08:04 | ECG_ITS ---
Test Reason : obesity Blood Pressure : */* mmHG Vent. Rate : 94 BPM Atrial Rate : 94 BPM P-R Int : 144 ms QRS Dur : 76 ms QT Int : 326 ms P-R-T Axes : 61 34 43 degrees QTcB Int : 407 ms Normal sinus rhythm Normal ECG No previous ECGs available Referred By: Aristeo Myrick Electronically Signed By: BABS KRAMER MD
--- OUTSIDE RECORDS SUMMARY | 2025-01-17 08:05 | XMS_ITS | Patient Health Record ---
Author Organization [facility] Address [address] [place] [id number] Care Team Providers Care Print Line Inspector Name Role Phone Jeremiah(INACTIVE), Viky Primary Care Pr ovider Unavailable Juan Miguel Sammy Unavailable [phone] Reason For Referral No Information Problems Problem Type SNOMED Code ICD Code Onset Dates Problem Status W/U Status Risk Notes Problem Cholelithiasis without obstruction (41608530) Calculus of gallbladder without cholecystitis without obstruction (K80.20) Active confirmed Problem Constipation (72426786) Constipation, unspecified constipation type (K59.00) Active confirmed Problem Left upper quadrant pain (818673743) Abdominal pain, left upper quadrant (R10.12) Active confirmed Plan Of Treatment No Information Insurance Providers Payer Name Payer Address Payer Phone Subscriber Number Group Number Insured Name Patient Relationship to Insured Coverage Start Date Coverage End Date [facility] [address] [place] [phone] [id number] JARON VICK Self - patient is the insured Medical (General) History Medical History History ICD Code Denies ND,DM,CVA,Lung disease,renal dise ase Migraines gallstones--asymptomatic kidney stones with left-sided hydronephr osis
[2025-01-17 08:21] LABS: MANUAL DIFF FLAG NO
[2025-01-17 09:00] LABS: Hematocrit 44.0 % (37.0-47.0); Hemoglobin 14.3 g/dl (12.0-16.0); Imm Gran Abs Auto 0.03 X10*3/uL (0.00-0.03); Imm Gran Pct Auto 0.4 % (0.0-0.4); Lymphocytes Absolute Auto 2.5 X10*3/uL (1.2-4.9); Mean Corpuscular HGB Conc 32.5 g/dl (31.0-35.0); Mean Corpuscular Hemoglobin 30.4 pg (27.0-33.0); Mean Corpuscular Volume 93.4 fL (80.0-98.0); NRBC Abs Auto 0.000 X10*3/uL (0.0-0.012); NRBC Pct Auto 0.0 /100WBC (0.0-0.2); Platelet Count 274 X10*3/uL (160-400); Red Blood Count 4.71 X10*6/uL (4.20-5.50); White Blood Count 8.2 X10*3/uL (4.8-10.8)
[2025-01-17 09:43] LABS: Alanine Aminotransferase 53 U/L (0-31); Albumin Level 4.6 g/dL (3.5-5.0); Alkaline Phosphatase 108 U/L (39-117); Anion Gap 11 (12-20); Aspartate Amino Transferase 38 U/L (5-31); Blood Urea Nitrogen 15 mg/dL (9-16); Calcium 9.2 mg/dL (8.4-10.2); Carbon Dioxide 26 mmol/L (22-29); Chloride 107 mmol/L (96-108); Cholesterol 167 mg/dL (<200); Estimated Glomerular Filt Rate > 60; HDL Cholesterol 42 mg/dL (>40); Iron 119 mcg/dL (30-160); Percent Iron Saturation 34 % (15-50); Potassium 4.4 mmol/L (3.3-5.1); Sodium 140 mmol/L (135-145); Total Iron Binding Capacity 345 mcg/dL (228-428); Total Protein 7.8 g/dL (6.5-8.0); Triglycerides 67 mg/dL (<150); Unsaturated Iron Binding 226 ug/dL
[2025-01-17 09:51] LABS: Ferritin 56 ng/mL (10-250)
[2025-01-17 09:54] LABS: Folate 12.7 ng/mL (> or = 4.0); Vitamin B12 573 pg/mL (200-900)
== END 2025-01-17 08:00 | disposition home or self-care (01) ==
LOC: HO.XRAY 07:59
PROVIDERS: Visit Provider Surgery
DX: I10 Essential (primary) hypertension (principal); N20.0 Calculus of kidney; E66.9 Obesity, unspecified; Z68.38 Body mass index [BMI] 38.0-38.9, adult
CPT/HCPCS: 36415; 71046; 80053; 80061; 82306; 82607; 82728; 82746; 83036; 83525; 83540; 84425; 84443; 84590; 84630; 85025; 86140; 93005

== ENCOUNTER → 2025-01-17 08:04 | Outpatient (BNV) | payer OTHER, SELFPAY | PROVIDERS: Visit Provider Internal Medicine Cardiovascular Disease | DX: E66.9 Obesity, unspecified (principal) | CPT/HCPCS: 93010 ==

== ENCOUNTER → 2025-01-17 08:21 | Outpatient (BNV) | payer OTHER, SELFPAY | PROVIDERS: Visit Provider Radiology Diagnostic Radiology | DX: E66.9 Obesity, unspecified (principal); Z68.38 Body mass index [BMI] 38.0-38.9, adult; M47.815 Spondylosis without myelopathy or radiculopathy, thoracolumbar region | CPT/HCPCS: 71046 ==